=== PATIENT | male | born 1935 | race Caucasian/White ===

== ENCOUNTER 2021-04-08 10:40 | Outpatient (CLI) | payer MEDICARE, OTHER, SELFPAY | END 2021-04-08 10:41 | disposition home or self-care (01) | PROVIDERS: PCP Internal Medicine; Visit Provider Internal Medicine | DX: R79.89 Other specified abnormal findings of blood chemistry (principal); E07.9 Disorder of thyroid, unspecified | CPT/HCPCS: 36415; 84439; 84443 ==

== ENCOUNTER 2022-12-21 16:42 | Outpatient (CLI) | payer MEDICARE, OTHER, SELFPAY ==
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
== END 2022-12-21 16:43 | disposition home or self-care (01) ==
PROVIDERS: PCP Internal Medicine; Visit Provider Internal Medicine
DX: M79.601 Pain in right arm (principal)
CPT/HCPCS: 73090

== ENCOUNTER 2022-12-23 00:44 | Day surgery (SDC) | payer MEDICARE, OTHER, SELFPAY ==
[2022-12-08 13:59] VITALS: BMI 25.1
--- NOTE | 2022-12-22 15:59 | PM.HPGS ---
History of Present Illness History of Present Illness Consent: Risks, benefits, and alternatives have been discussed and questions answered. Patient agrees to proceed with procedure. Chief complaint: anemia Narrative: Jose L Santos is a 87 year old male who has become increasingly anemic over the last couple of years.? He has not seen blood in his stools.? He recalls some time ago he had blood in his stools, about 10 years ago and was found to have internal and external hemorrhoids.? He denies abdominal pain nausea vomiting or anorexia.? He denies dysphagia or heartburn.? He has lost about 5 lb in the past year.? He has had no significant change in bowel habits. His hemoglobin was 12.8 in September of 2021, and now has dropped to 11.4.? MCV remains normal at 83.? His last colonoscopy in 2015 revealed internal and external hemorrhoids but also an area in the mid to distal transverse colon that was inflamed and was biopsied. Review of Systems Review of Systems: All systems reviewed & are unremarkable except as noted in HPI and below PMFSH Past Medical History Medical History GERD (gastroesophageal reflux disease) Hypertension Social History Social History Smoking status: Former smoker Alcohol intake: current Alcohol use details: occasionally Substance use: never Substance use type: does not use Living arrangements: with family Spiritual care concerns: No Meds Home Medications and Allergies Home Medications Medication Instructions Recorded Confirmed Type allopurinol 300 mg tablet 300 mg PO DAILY 12/01/22 12/23/22 History clonidine HCl 0.1 mg tablet 0.1 mg PO DAILY 12/01/22 12/23/22 History metoprolol succinate 50 mg 50 mg PO DAILY 12/01/22 12/23/22 History tablet,extended release 24 hr omeprazole 40 mg capsule,delayed 40 mg PO DAILY 12/01/22 12/23/22 History release simvastatin 40 mg tablet 40 mg PO DAILY 12/01/22 12/23/22 History triamterene 37.5 1 cap PO DAILY 12/08/22 12/23/22 History mg-hydrochlorothiazide 25 mg capsule Allergies Allergy/AdvReac Type Severity Reaction Status Date / Time No Known Allergies Allergy Verified 12/23/22 07:39 Exam Const: General: alert Orientation/consciousness: patient oriented x3 Resp: Auscultation: clear to auscultation bilaterally Cardio: Rhythm: regular rhythm GI: GI Palp: Yes Soft to palpation and No Tenderness to palpation present (GI) Neuro: General: patient oriented x3 Assessment and Plan Assessment and plan (1) Anemia: Code(s): D64.9 - Anemia, unspecified Status: Acute Assessment and Plan: EGD with possible biopsy or dilatation or cautery.Colonoscopy with possible biopsy or polypectomy or cautery or injection of substances.
[2022-12-23 07:41] VITALS: BP 178/81; PULSE 93; RESP 16; TEMP 36.1; O2SAT 98; BMI 23.4
[2022-12-23] MEDS: LACTATED RINGERS 1,000 ML 150 ML IV CONT (07:49)
--- NOTE | 2022-12-23 08:17 | P.PNAN_ITS ---
Anes - Initial Pre Proc Eval Procedure: Operation Date: 12/23/22 08:30 Proposed Procedures p Esophagogastroduodenoscopy & Colonoscopy - Austin Lantigua MD Date/Time: 12/23/22 08:17 Surgeon: Austin Lantigua MD Pre Op Diagnosis: anemia Patient Data Age: 87 Gender: M Height: 1.63 m Weight: 62 kg Last Vital Signs Temp 96.9 F L 12/23/22 07:41 Pulse 93 12/23/22 07:41 Resp 16 12/23/22 07:41 BP 178/81 H 12/23/22 07:41 Pulse Ox 98 12/23/22 07:41 O2 Del Method Room Air 12/23/22 07:41 Allergies Allergy/AdvReac Type Severity Reaction Status Date / Time No Known Allergies Allergy Verified 12/23/22 07:39 Home Medications Medication Instructions Recorded Confirmed Type allopurinol 300 mg tablet 300 mg PO DAILY 12/01/22 12/23/22 History clonidine HCl 0.1 mg tablet 0.1 mg PO DAILY 12/01/22 12/23/22 History metoprolol succinate 50 mg 50 mg PO DAILY 12/01/22 12/23/22 History tablet,extended release 24 hr omeprazole 40 mg capsule,delayed 40 mg PO DAILY 12/01/22 12/23/22 History release simvastatin 40 mg tablet 40 mg PO DAILY 12/01/22 12/23/22 History triamterene 37.5 1 cap PO DAILY 12/08/22 12/23/22 History mg-hydrochlorothiazide 25 mg capsule Patient hx anesthesia problems: none Family hx anesthesia problems: none Results Review: All pre-operative results and documents have been reviewed as part of the pre- operative evaluation. [facility] Past Medical History Medical History GERD (gastroesophageal reflux disease) Hypertension Social History Social History Smoking status: Former smoker Alcohol intake: current Alcohol use details: occasionally Substance use: never Substance use type: does not use Living arrangements: with family Spiritual care concerns: No Anes - Eval Final PreProcedure Day of Procedure 12/23/22 08:17 Patient weight: normal Heart: regular rate and rhythm Lungs: clear to auscultation Airway: Mallampati scale class II Neurological: alert and oriented Last oral intake: >/= 8 hours ASA classification: III Emergent: no Anesthetic plan: proceed Anesthesia type and monitoring: general GIVS and standard monitoring Results Review: All pre-operative results and documents have been reviewed as part of the pre- operative evaluation. Informed Consent: The patient's anesthetic plan and its attendant risks and benefits were discussed with the patient/family/POA. Questions were solicited and answers provided to the satisfaction of the patient/family/POA.
--- NOTE | 2022-12-23 08:34 | SUR.OPER ---
EGD start 832 end 839, Colonoscopy start 847 end 904
[2022-12-23 09:05] VITALS: BP 130/62; PULSE 60; RESP 18; O2SAT 99
[2022-12-23 09:15] VITALS: BP 129/65; PULSE 57; RESP 20; O2SAT 99
--- NOTE | 2022-12-23 09:18 | SUR.OPER ---
COSMETIC MANAGER provided oral suctioning during EGD.
[2022-12-23 09:25] VITALS: BP 155/69; PULSE 52; RESP 24; O2SAT 100
== END 2022-12-23 09:35 | disposition home or self-care (01) ==
PROVIDERS: PCP Internal Medicine; Visit Provider Internal Medicine Gastroenterology
PROC: 0DJ08ZZ Inspection of Upper Intestinal Tract, Via Natural or Artificial Opening Endoscopic (ICD-10-PCS; CPT 43235; principal; 2022-12-23 08:30)
DX: D64.9 Anemia, unspecified (principal); K64.8 Other hemorrhoids; D12.8 Benign neoplasm of rectum; D12.3 Benign neoplasm of transverse colon; K57.30 Diverticulosis of large intestine without perforation or abscess without bleeding; K31.7 Polyp of stomach and duodenum; K21.9 Gastro-esophageal reflux disease without esophagitis; I10 Essential (primary) hypertension; Z87.891 Personal history of nicotine dependence
CPT/HCPCS: 45385; 45380; 43239; 43251; 87081; 88305; J2704; J7120

== ENCOUNTER 2024-07-11 19:50 | Inpatient (IN) | payer MEDICARE, OTHER, SELFPAY ==
--- NOTE | ~2024-07-11 | CT_ITS ---
EXAMINATION: CT cervical spine wo con DATE: 07/11/2024 21:33 INDICATION: Fall with head injury TECHNIQUE: Computed tomography (CT) of the cervical spine was performed without intravenous contrast. Automated exposure control and iterative reconstruction technique were employed. The dose-length pro duct was 229.75 mGy-cm. COMPARISON: None FINDINGS: Severe osteoarthritis at the atlantoaxial articulation. 2-3 mm anterolisthesis C7 on T1. Mild cervica l levocurvature. 10 degrees cervical levocurvature. Vertebral body heights are normal. No acute fract ure. There is fusion across the C3-C4 facet and uncovertebral joints. Severe disc height loss at C5-C 6 through C7-T1. Mild disc height loss at C2-C3 and C4-C5 and T1-T2 and T2-T3. Small posterior endpla te osteophyte resulting in mild central canal stenosis at C5-C6 and C6-C7. Severe facet osteoarthriti s bilaterally throughout the cervical spine and multilevel moderate to severe cervical uncovertebral osteoarthritis. There is moderate neural foraminal stenosis on the right at C4-C5 and bilaterally at C2-C3, C5-C6 and C6-C7. Mild neural foraminal stenosis at the remaining cervical levels. Atherosclero tic calcific a cyst at the bilateral carotid bulbs. Cervical soft tissues are otherwise unremarkable. Mild right apical pleural-parenchymal scarring. IMPRESSION: 1. Severe cervical spondylosis with no acute osseous abnormality. Reviewed, dictated and finalized at location A.
--- NOTE | ~2024-07-11 | CT_ITS ---
EXAMINATION: CT brain wo con DATE: 07/11/2024 21:33 INDICATION: Fall with head injury TECHNIQUE: Computed tomography (CT) of the head was performed without intravenous contrast. Sagittal and coronal reconstructions were performed. The mA was adjusted according to patient size. Iterative reconstruction technique was employed. The dose-length product was 681.00 mGy-cm. COMPARISON: None FINDINGS: No fracture. No acute intracranial hemorrhage, acute infarction or abnormal extra axial fluid collect ion. There is mild scattered white matter hypoattenuation consistent with chronic small vessel ischem ic disease. Symmetric prominence of the sulci and ventricles consistent with moderate age-appropriate diffuse cerebral volume loss. No mass/mass effect. There is complete opacification of the left sphe noid sinus with relatively high central attenuation suggesting possibility of chronic fungal sinusiti s. There appears to be focal decreased since along the posterior sinus wall just anterior to the basi lar artery and along the inferior wall on the rest the posterior oropharynx. Changes of bilateral int raocular lens replacement. The orbits and mastoid air cells are normal. IMPRESSION: 1. No fracture or acute intracranial process. 2. Complete ill-defined high density opacification of the left sphenoid sinus consistent with chronic fungal sinusitis with small regions of dehiscence along the posterior and inferior hawthorne of the sinu s, the former located immediately anterior to the basilar artery. Reviewed, dictated and finalized at location A. IMPRESSION: 1. No fracture or acute intracranial process. 2. Complete ill-defined high density opacification of the left sphenoid sinus c onsistent with chronic fungal sinusitis with small regions of dehiscence along the posterior and inferior hawthorne of the sinus, the former located immediately a nterior to the basilar artery.
--- NOTE | ~2024-07-11 | XR_ITS ---
EXAMINATION: XR chest 1V portable DATE: 07/11/2024 21:12 INDICATION: Bradycardia TECHNIQUE: frontal view of the chest was obtained. COMPARISON: Chest radiograph dated 06/22/06 FINDINGS: There a few bilateral calcified pulmonary nodules consistent with old granulomatous disease. No other airspace opacities, pulmonary edema, pleural effusion or pneumothorax. The cardiomediastinal silhoue tte is normal. 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 IMPRESSION: 1. No acute cardiopulmonary disease. Reviewed, dictated and finalized at location A.
--- NOTE | ~2024-07-11 | US_ITS ---
EXAMINATION: US renal BI DATE: 07/12/2024 15:12 INDICATION: Acute renal insufficiency TECHNIQUE: Multiple ultrasound grayscale images of the kidneys were obtained. COMPARISON: None. FINDINGS: The right kidney measures 10.1 x 4.9 x 4.9 cm. The left kidney measures 12.0 x 6.0 x 4.0 cm. The kidn eys demonstrate normal echogenicity. There are bilateral anechoic renal cysts the largest on the righ t measuring 1.8 cm and 1.7 cm in maximal diameters and on the left measuring 1.4 cm in maximal diamet er. There is no hydronephrosis in either kidney. No stones identified. The bladder is normal. IMPRESSION: 1. Bilateral renal cysts. Otherwise normal kidneys without hydronephrosis. Reviewed, dictated and finalized at location A.
--- NOTE | ~2024-07-11 | XR_ITS ---
EXAMINATION: XR hand LT 2V DATE: 07/11/2024 22:11 INDICATION: Fall with left hand pain TECHNIQUE: Posteroanterior, oblique and lateral views of the left hand were obtained. COMPARISON: None. FINDINGS: Diffuse osteopenia. Bone alignment is normal. No fracture. There is chondrocalcinosis at the wrist an d second and third metacarpophalangeal joints. Polyarticular osteoarthritis, severe at the first carp ometacarpal and second and third metacarpophalangeal joints. Moderate osteoarthritis at the first and fifth metacarpophalangeal, first interphalangeal and second distal interphalangeal joint and mild at the remaining joints at the left hand and wrist. No erosions to suggest inflammatory arthritis. IMPRESSION: 1. No acute osseous abnormality. 2. 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 calcium pyrophosphate deposition (CPPD) disease. Reviewed, dictated and finalized at location A. IMPRESSION: 1. No acute osseous abnormality. 2. Moderate to severe polyarticular osteoarthritis with atypical predominance a t the second and third metacarpophalangeal joints which along with chondral rick cinosis suggests possibility of secondary osteoarthritis related. calcium pyrop hosphate deposition (CPPD) disease.
--- NOTE | ~2024-07-11 | MR_ITS ---
EXAMINATION: MR sinus wo/w con DATE: 07/12/2024 12:36 INDICATION: Chronic fungal sinusitis TECHNIQUE: Magnetic resonance imaging (MRI) of the paranasal sinuses was performed without and with 1 2 mL Multihance intravenous contrast. Sequences included larger yazyi-ev-tzym including the brain wit h sagittal T2-weighted FLAIR and 3-D axial T1 weighted MULLEN; smaller field of view of the paranasal sinuses with axial and coronal T1-weighted FSE, T2-weighted FS FSE and T2-weighted FSE STIR, axial T 1-weighted FS FSE and postcontrast small [id number] axial and coronal T1-weighted FS FSE and large r [id number] including the brain with sagittal and axial T1-weighted FSE. COMPARISON: CT dated 07/11/2024 FINDINGS: There is mild enhancing mucoperiosteal thickening in the left maxillary, right sphenoid and bilateral frontal and ethmoid sinuses. There is moderate enhancing mucosal thickening at the periphery of none nhancing T1 hyperintense material likely proteinaceous mucus filling the left sphenoid sinus. End see n is a small defect in the bone at the posterior wall of the left sphenoid sinus. Local dural based e nhancement along the posterior margin of the clivus which measures up to 1 mm in thickness. No epidur al or subdural fluid collections to suggest abscess. Similarly there is mild mucosal enhancement fran g the posterior superior wall of the oropharynx underlying the region of the cortical defect seen on the prior CT which is also subtly discernible on the coronal images. There is mild scattered periventricular and subcortical predominant white matter T2 hyperintensity wh ich is within normal limits for age and likely sequela of chronic small vessel ischemic disease. Symm etric prominence of the sulci and ventricles consistent with moderate age-appropriate diffuse cerebra l volume loss. No abnormally enhancing brain lesions. Flow voids are seen in the cerebral arteries on the T2-weighted sequences consistent with their expected patency. The right vertebral artery is kamari nant. Changes of bilateral intraocular lens replacement. IMPRESSION: 1. Left sphenoid sinusitis with mild enhancing dural thickening along the posterior margin of the cli vus overlying a small erosion in the posterior wall of the left sphenoid sinus. Similarly there is mi ld enhancing mucosal thickening along the posterior superior wall of the oropharynx overlying an radha tional small erosion along the inferior wall of the sinus. No evident intracranial abscess or other a bnormally enhancing brain lesions. Reviewed, dictated and finalized at location A. IMPRESSION: 1. Left sphenoid sinusitis with mild enhancing dural thickening along the poste rior margin of the clivus overlying a small erosion in the posterior wall of th e left sphenoid sinus. Similarly there is mild enhancing mucosal thickening calvin ng the posterior superior wall of the oropharynx overlying an additional small erosion along the inferior wall of the sinus. No evident intracranial abscess o r other abnormally enhancing brain lesions.
--- NOTE | ~2024-07-11 | XR_ITS ---
EXAMINATION: XR knee RT 3V DATE: 07/11/2024 22:11 INDICATION: Right knee pain post fall TECHNIQUE: Anteroposterior, 2 oblique and crosstable lateral views of the right knee were obtained COMPARISON: None. FINDINGS: Right total knee arthroplasty with patellar resurfacing which appears well seated in near-anatomic al ignment. No fracture. No periprosthetic lucency to suggest loosening or infection. No right knee join t effusion. There is mild soft tissue swelling anterior to the inferior patella. IMPRESSION: 1. Right total knee arthroplasty with mild prepatellar soft tissue swelling but no right knee joint e ffusion or acute osseous abnormality. Reviewed, dictated and finalized at location A. IMPRESSION: 1. Right total knee arthroplasty with mild prepatellar soft tissue swelling but no right knee joint effusion or acute osseous abnormality.
--- NOTE | ~2024-07-11 | XR_ITS ---
EXAMINATION: XR elbow RT 2V DATE: 07/11/2024 22:11 INDICATION: Right elbow pain post fall TECHNIQUE: Anteroposterior and lateral views of the right elbow were obtained. COMPARISON: None. FINDINGS: Alignment is normal. No fracture or joint effusion. Mild osteoarthritis at the right elbow. Periphera l IV at the antecubital fossa. Soft tissues otherwise unremarkable. IMPRESSION: 1. No right elbow joint effusion or acute osseous abnormality. Reviewed, dictated and finalized at location A.
[2024-07-11 20:25] VITALS: BP 187/47; PULSE 37; RESP 20; TEMP 36.6; O2SAT 100
[2024-07-11 21:27] LABS: Basophils Percent Auto 0.5 % (0.2-1.2); Eosinophils Absolute Auto 0.2 K/mm3 (0-0.3); Eosinophils Percent Auto 2.7 % (0-4.4); Hematocrit 34.9 % (42.0-52.0); Hemoglobin 10.9 g/dL (14.0-18.0); Immature Granulocyte Absolute 0.02 K/mm3 (0.00-0.031); Immature Granulocyte Percent A 0.4 % (0-0.5); Lymphocytes Absolute Auto 1.05 K/mm3 (0.9-3.2); Lymphocytes Percent Auto 18.9 % (18.3-44.2); Mean Corpuscular HGB Conc 31.2 g/dl (32-36); Mean Corpuscular Hemoglobin 25.3 pg (26-34); Mean Corpuscular Volume 81.2 fl (80-100); Mean Platelet Volume 10.1 fl (7.4-10.4); Monocytes Absolute Auto 0.5 K/mm3 (0.1-0.6); Monocytes Percent Auto 9.7 % (2.6-8.5); Neutrophils Absolute Auto 3.8 K/mm3 (1.3-6.7); Neutrophils Percent Auto 67.8 % (45.5-73.1); Platelet Count Result 169 k/mm3 (150-375); Red Cell Distribution Width 14.4 % (11.5-14.5); White Blood Count 5.6 K/mm3 (4.5-10.0)
[2024-07-11 21:37] LABS: Prothrombin Time 13.7 Seconds (11.1-14.7)
[2024-07-11 21:38] LABS: Partial Thromboplastin Time 27.8 Seconds (22.3-36.8)
[2024-07-11 21:48] LABS: Alanine Aminotransferase 10 U/L (6-50); Albumin Level 3.9 g/dL (3.5-5.1); Alkaline Phosphatase 65 U/L (38-126); Anion Gap 8 mmol/L (4-12); Aspartate Amino Transferase 20 U/L (17-59); Bilirubin,Total 0.5 mg/dL (0.2-1.3); Blood Urea Nitrogen 30 mg/dL (9-20); Calcium 8.9 mg/dL (8.4-10.2); Carbon Dioxide 28 mmol/L (22-30); Chloride 102 mmol/L (98-107); Estimated CRCL calculation 24 ml/min; Estimated Glomerular Filt Rate 38; Glucose 109 mg/dL (65-110); Lipase 112 U/L (23-300); Potassium 3.9 mmol/L (3.4-5.0); Sodium 138 mmol/L (137-145)
[2024-07-11 21:52] LABS: Troponin I < 0.012 ng/mL (0.000-0.034)
--- NOTE | 2024-07-11 21:55 | ED.FALL ---
HPI - Fall General Chief Complaint: Fall <Bryan Pritchard MD - Last Filed: 07/11/24 23:22> Stated Complaint: fall, head injury <Bryan Pritchard MD - Last Filed: 07/11/24 23:22> Time Seen by Provider: 07/11/24 20:50 <Bryan Pritchard MD - Last Filed: 07/11/24 23:22> History of Present Illness HPI Narrative: 88-year-old male with a past medical history significant for chronic anemia and hypertension. Presents today with a ground level mechanical fall. Patient states he was washing his daughter's play basketball and he went in accidentally tripped over his feet while walking forward. Sustained a ground level fall with head trauma without loss of consciousness. He braced himself by landing onto his left hand and right elbow. Was able to get up unassisted and did not have any syncope. Does not take any blood thinner medications. Is on multiple antihypertensive medications according to himself. Has a history of bradycardia but not previously been evaluated for any kind of pacemaker placement. Has had recent titration is to his blood pressure medications according to his daughter who was present at bedside for collateral information. Patient denied any prodromal symptoms such as headache, vision changes, chest pain, shortness a breath, lightheadedness or dizziness prior to his fall. He states was purely mechanical in nature. Presently he states he is having some pain in his right knee and right elbow does have a minor abrasion. Unclear if his tetanus is up-to-date. No other acute concerns presently. <Bryan Pritchard MD - Last Filed: 07/11/24 23:22> Related Data Home Medications: Home Medications Medication Instructions Recorded Confirmed allopurinol 300 mg tablet 300 mg PO DAILY 12/01/22 07/12/24 clonidine HCl 0.1 mg tablet 0.1 mg PO BID 12/01/22 07/12/24 metoprolol succinate 50 mg 50 mg PO DAILY 12/01/22 07/12/24 tablet,extended release 24 hr omeprazole 40 mg capsule,delayed 40 mg PO DAILY 12/01/22 07/12/24 release simvastatin 40 mg tablet 40 mg PO DAILY 12/01/22 07/12/24 triamterene 37.5 1 cap PO DAILY 12/08/22 07/12/24 mg-hydrochlorothiazide 25 mg capsule levothyroxine 25 mcg tablet 25 mcg PO DAILY 07/12/24 07/12/24 <Bryan Pritchard MD - Last Filed: 07/11/24 23:22> Allergies/Adverse Reactions: Allergies Allergy/AdvReac Type Severity Reaction Status Date / Time No Known Allergies Allergy Verified 07/11/24 20:40 <Bryan Pritchard MD - Last Filed: 07/11/24 23:22> Review of Systems Review of Systems: As reviewed above in HPI <Bryan Pritchard MD - Last Filed: 07/11/24 23:22> PMFSH Past Medical History Medical History: Medical History GERD (gastroesophageal reflux disease) Hypertension <Bryan Pritchard MD - Last Filed: 07/11/24 23:22> Social History Social History: Social History Smoking status: Former smoker Alcohol intake: current Alcohol use details: occasionally Substance use: never Substance use type: does not use Living arrangements: with family Spiritual care concerns: No <Bryan Pritchard MD - Last Filed: 07/11/24 23:22> Exam Narrative: GENERAL: [Well-appearing, well-nourished, and in no acute distress.] HEAD: Superior orbital ridge hematoma on the right side, very minor without any overlying abrasion EYES: [PERRLA and EOMI.] ENT: Nares clear, no rhinorrhea or epistaxis. Mucous membranes moist. NECK: Supple. CHEST: [Clear to auscultation. No respiratory distress.] HEART: [Regular rate and rhythm]. No murmur heard. [Normal peripheral pulses.] ABDOMEN: [Soft, nondistended], [nontender], [No rigidity or guarding] EXTREMITIES: Abrasion over the lateral aspect of the right elbow but full range of motion with flexion extension
[2024-07-11 21:59] VITALS: BP 188/63; PULSE 38; RESP 16; O2SAT 99
[2024-07-11] MEDS: LACTATED RINGERS 1,000 ML 999 ML IV CONT (22:11)
[2024-07-11] MEDS: TETANUS,DIPHTHERIA,AC PERTUSSIS ADULT (0.5 ML) BOOSTRIX IM (22:11)
[2024-07-11] MEDS: ACETAMINOPHEN 500 MG TABLET 1000 MG PO (22:11)
--- NOTE | 2024-07-11 23:10 | ECG_ITS ---
Test Date: 2024-07-11 20:45:43 Measurements Intervals [place] Rate: 40 P: 54 VT: 187 QRS: -30 QRSD: 103 T: 3 QT: 499 QTc: 410 Interpretive Statements SINUS BRADYCARDIA INCOMPLETE RIGHT BUNDLE BRANCH BLOCK BORDERLINE R WAVE PROGRESSION, ANTERIOR LEADS VOLTAGE CRITERIA FOR LVH BORDERLINE T WAVE ABNORMALITY- ANT/INF LEADS BASELINE ARTIFACT- I, II, III, AVR, AVL, V3-V6 ABNORMAL ECG No previous ECG available for comparison Electronically Signed On 07-12-2024 06:28:19 CDT by Mati Espana D.O.
[2024-07-11 23:36] VITALS: BP 181/61; PULSE 42; RESP 15; O2SAT 99
[2024-07-12] VITALS (20 sets, daily range): BP systolic 142–199; BP diastolic 51–73; PULSE 40–83; RESP 15–20; TEMP 36.2–36.5; O2SAT 96–100
--- NOTE | 2024-07-12 | ECHO_ITS ---
Patient Info Name: Jose L Santos Age: 88 years : 1935 Gender: Male Ht: 64 in Wt: 138 lbs BSA: 1.69 m2 HR: 48 bpm BP: 168 / 68 mmHg Heart Rhythm: Bradycardia Technical Quality: Fair Exam Date: 07/12/2024 3:23 PM Exam Location: Echo Lab Patient Status: Outpatient Admit Date: 07/12/2024 Staff Ordering Physician: Fabio Gustafson MD [employer] Laboratory Manager: Joan Roberts RDCS Attending Provider: Jaime Echeverria MD Exam Type: CA echo doppler color flow Study Info Indications R00.1 - Bradycardia, unspecified Complete two-dimensional, color flow and Doppler transthoracic echocardiogram is performed. Summary 1. Left ventricular systolic function is normal, estimated at 60-65%. 2. There is mild asymmetric septal increased left ventricular wall thickness. 3. The left ventricular diastolic function is grade I diastolic dysfunction. 4. Right ventricular systolic function is normal. 5. Left atrial chamber dimension is moderately enlarged. 6. Right atrial chamber dimension is mildly enlarged. 7. There is mild aortic valve regurgitation. 8. There is mild tricuspid valve regurgitation. Left Ventricle Left ventricular systolic function is normal, estimated at 60-65%. There is mild asymmetric septal increased left ventricular wall thickness. The left ventricular diastolic function is grade I diastolic dysfunction. Right Ventricle Right ventricular chamber dimension is normal. Right ventricular systolic function is normal. Left Atria Left atrial chamber dimension is moderately enlarged. Right Atria Right atrial chamber dimension is mildly enlarged. Atrial Septum Intact interatrial septum visualized by color flow imaging. Aortic Valve The aortic valve is trileaflet. There is no aortic valve stenosis. There is mild aortic valve regurgitation. There is mild aortic valve calcification. Pulmonic Valve The pulmonic valve is not well visualized. There is no pulmonic regurgitation. Mitral Valve There is trace mitral valve regurgitation. Tricuspid Valve There is mild tricuspid valve regurgitation. Pericardium/Pleural The pericardium appears epicardial fat pad. There is no pericardial effusion. Inferior Vena Cava Inferior vena cava is not well visualized. Aorta The aortic root size at the sinus of Valsalva is normal. Left Ventricular Outflow Tract Name Value Normal LVOT 2D LVOT Diameter 2.0 cm LVOT Doppler LVOT Peak Gradient 3 mmHg LVOT Mean Gradient 1 mmHg LVOT VTI 25 cm LVOT VTI/AV VTI Ratio 0.7 LVOT Stroke Volume 78 ml LVOT CO 3.2 l/min LVOT CI 1.9 l/min/m2 Pulmonic Valve Name Value Normal RVOT Doppler RVOT Peak Gradient 2 mmHg PV Doppler
--- NOTE | 2024-07-12 00:06 | PM.IMHP ---
H&P: HPI History of Present Illness Date/Time: 07/12/24 00:06 Chief Complaint: FALL Narrative: THIS IS AN 88-YEAR-OLD MALE WITH PAST MEDICAL HISTORY SIGNIFICANT FOR HYPERTENSION, GERD. PATIENT WAS BROUGHT TO THE EMERGENCY ROOM FOR EVALUATION AFTER SUFFERING A FALL NO LOSS OF CONSCIOUSNESS. HOWEVER AFTER EVALUATION WAS DETERMINED THAT PATIENT HAD NO ACUTE FRACTURES HAD A CHANGE ON HIS HEART RATE THAT DROPPED TO THE 30'S PATIENT HAD BEEN TAKING EXCESS AMOUNT OF HIS BETA-KIYA AT HOME.DECISION HAS BEEN MADE TO PLACE THE PATIENT IN OBSERVATION FOR FURTHER EVALUATION MANAGEMENT AND TREATMENT. EXAMINATION: XR chest 1V portable DATE: 07/11/2024 21:12 INDICATION: Bradycardia TECHNIQUE: frontal view of the chest was obtained. COMPARISON: Chest radiograph dated 06/22/06 FINDINGS: There a few bilateral calcified pulmonary nodules consistent with old granulomatous disease. No other airspace opacities, pulmonary edema, pleural effusion or pneumothorax. The cardiomediastinal silhouette is normal. 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 IMPRESSION: 1. No acute cardiopulmonary disease. EXAMINATION: CT brain wo con DATE: 07/11/2024 21:33 INDICATION: Fall with head injury TECHNIQUE: Computed tomography (CT) of the head was performed without intravenous contrast. Sagittal and coronal reconstructions were performed. The mA was adjusted according to patient size. Iterative reconstruction technique was employed. The dose-length product was 681.00 mGy-cm. COMPARISON: None FINDINGS: No fracture. No acute intracranial hemorrhage, acute infarction or abnormal extra axial fluid collection. There is mild scattered white matter hypoattenuation consistent with chronic small vessel ischemic disease. Symmetric prominence of the sulci and ventricles consistent with moderate age-appropriate diffuse cerebral volume loss. No mass/mass effect. There is complete opacification of the left sphenoid sinus with relatively high central attenuation suggesting possibility of chronic fungal sinusitis. There appears to be focal decreased since along the posterior sinus wall just anterior to the basilar artery and along the inferior wall on the rest the posterior oropharynx. Changes of bilateral intraocular lens replacement. The orbits and mastoid air cells are normal. IMPRESSION: 1. No fracture or acute intracranial process. 2. Complete ill-defined high density opacification of the left sphenoid sinus consistent with chronic fungal sinusitis with small regions of dehiscence along the posterior and inferior hawthorne of the sinus, the former located immediately anterior to the basilar artery. Review of Systems Review of Systems: [facility] Past Medical History Medical History (Updated 07/12/24 @ 03:06 by Jaime Echeverria MD) GERD (gastroesophageal reflux disease) Hypertension Family History Family History (Updated 07/12/24 @ 01:04 by Radha Ordonez RN) Other Unknown family medical history Social History Social History Smoking status: Never smoker Alcohol intake: current Alcohol use details: occasionally Substance use: never Substance use type: does not use Do You Feel Safe in your Home?: Yes Lack of Transportation: No Lack of Food: Never True Current Housing: I Have Housing Concerned About Future Housing: No Difficulty Paying Gas/Electric Bills: No Difficulty Paying for Meds: No Currently Unemployed: No Education: Bachelor's Degree Difficulty w/ Childcare or Family Care: No Living arrangements: with family Spiritual care concerns: No Meds Home Medications and Allergies Home Medications Medication Instructions Recorded Confirmed Type allopurinol 300 mg tablet 300 mg PO DAILY 12/01/22 07/12/24 History clonidine HCl 0.1 mg tablet 0.1 mg PO BID 12/01/22 07/12/24 History metoprolol succinate 50 mg 50 mg
--- NOTE | 2024-07-12 01:10 | ADMGEN ---
This patient, Jose L Santos, was admitted to IMU Room 204-01. Patient/family oriented to hospital policies and general routines including ID bracelet, bed and alarms, visiting hours, pain management, procedures, bathroom and other care routines, personal items, smoking policy, room service/diet, and visiting hours. Information on how to activate the Rapid Response Team has been discussed. Patient/Family are encouraged to report perceived risks to care and to ask questions if they do not understand what they are told or what they should do.
[2024-07-12] MEDS: hydrALAZINE HCL 20 MG/ML VIAL 10 MG IV PUSH ×2 (01:56→04:49)
[2024-07-12] MEDS: LEVOTHYROXINE SODIUM 25 MCG TABLET PO (06:35)
--- NOTE | 2024-07-12 07:57 | ECG_ITS ---
Test Date: 2024-07-12 09:36:13 Measurements Intervals [place] Rate: 50 P: 70 [place]: 199 QRS: -38 QRSD: 93 T: 7 QT: 453 QTc: 414 Interpretive Statements SINUS BRADYCARDIA LEFT AXIS DEVIATION INCOMPLETE RIGHT BUNDLE BRANCH BLOCK VOLTAGE CRITERIA FOR LVH POSSIBLE ANTERIOR MYOCARDIAL INFARCTION BORDERLINE ST ABNORMALITY- LATERAL LEADS BASELINE ARTIFACT- I, II, III, AVR, AVL, AVF, V1 ABNORMAL ECG Compared to ECG 07/11/2024 20:45:43 HEART RATE HAS INCREASED Electronically Signed On 07-12-2024 10:12:12 CDT by Mati Espana D.O.
[2024-07-12] MEDS: allopurinoL 300 MG TABLET PO (08:26)
[2024-07-12] MEDS: PANTOPRAZOLE 40 MG TABLET PO ×2 (08:27→20:13)
[2024-07-12] MEDS: amLODIPine BESYLATE 5 MG TABLET PO (08:27)
[2024-07-12] MEDS: SIMVASTATIN 20 MG TABLET 40 MG PO (08:27)
[2024-07-12 09:54] LABS: Complement C3 97 mg/dL (88-165)
[2024-07-12 09:59] LABS: Albumin Level 3.7 g/dL (3.5-5.1); Anion Gap 7 mmol/L (4-12); Blood Urea Nitrogen 27 mg/dL (9-20); Calcium 9.1 mg/dL (8.4-10.2); Carbon Dioxide 28 mmol/L (22-30); Chloride 105 mmol/L (98-107); Creatine Kinase 51 U/L (55-170); Estimated CRCL calculation 24 ml/min; Estimated Glomerular Filt Rate 38; Glucose 117 mg/dL (65-110); Phosphorus 3.5 mg/dL (2.5-4.5); Potassium 3.7 mmol/L (3.4-5.0); Sodium 140 mmol/L (137-145)
[2024-07-12 10:56] LABS: Iron 35 ug/dL (49-181)
[2024-07-12 10:59] LABS: Folic Acid 8.1 ng/mL (2.76->20)
[2024-07-12 11:05] LABS: Percent Iron Saturation 11 % (20-50)
[2024-07-12 12:31] LABS: Free T4 Free Thyroxine Reflex 1.07 ng/dL (0.78-2.19)
--- NOTE | 2024-07-12 13:15 | PM.IMPN ---
Progress Note: A&P Assessment and Plan (1) Bradycardia, sinus: Code(s): R00.1 - Bradycardia, unspecified Status: Acute Assessment and Plan: Patient presents with a fall and found to be bradycardic. He is on long-acting metoprolol which was stopped. He is also on clonidine which will hold as well. TSH 4.78 He does have confusion so he may be taking his medications inappropriately. He also may have an underlying conduction defect as well. Monitor off medications. Check ApneaLink. Check echocardiogram. Cardiology consulted his heart rate does not improve as expected (2) Fall from ground level: Code(s): W18.30XA - Fall on same level, unspecified, initial encounter Status: Acute Assessment and Plan: Patient states he tripped over his own feet falling to the ground. Chest x-ray is clear CT the brain no acute process but did show possible chronic fungal sinusitis Cervical spine CT shows severe cervical spondylosis but no acute osseous abnormalities. 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 Right elbow x-ray shows no acute findings. Start PT OT. Check B12 and folate levels. (3) ADEEL (acute kidney injury): Code(s): N17.9 - Acute kidney failure, unspecified Status: Acute Assessment and Plan: Creatinine 1.7 on admission. Old labs reviewed through family shows he had normal creatinine function a month ago. Rheumatoid factor month ago was negative. SPEP showed no M spike. Which check renal ultrasound. Hold Maxzide. Normal saline x1 L. Follow (4) Hypertension: Code(s): I10 - Essential (primary) hypertension Status: Acute Assessment and Plan: Patient's blood pressure was reviewed on 07/12 Blood pressure remains ekevated but was 142/60 when checked manually. Family does state that patient does need manual blood pressure checks for accuracy. Holding clonidine metoprolol for the bradycardia Will hold the Maxzide given his acute kidney injury. Will add Norvasc and adjust medications accordingly. (5) Sinusitis: Code(s): J32.9 - Chronic sinusitis, unspecified Status: Acute Assessment and Plan: CT the brain shows possible chronic fungal sinusitis at the left sphenoid sinus with small regions of dehiscence. This is adjacent to the basilar artery. Check MRI of the sinus to determine severity. ENT consult. May need to be transferred for biopsy if there are more concerning signs. (6) Cognitive impairment: Code(s): R41.89 - Other symptoms and signs involving cognitive functions and awareness Status: Acute Assessment and Plan: Patient with cognitive impairment that the family has noted recently. 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 CT the brain noted here showing possible sinusitis as mentioned above. Will not repeat MRI of the brain. Check B12, folate and vitamin-D levels. Defer to primary care doctor for further evaluation treatment. (7) Anemia: Code(s): D64.9 - Anemia, unspecified Status: Acute Assessment and Plan: Patient known to be iron deficient anemia and was noted here as well. Sources probably slow blood loss from polyps that have since been removed. Home with iron replacement (8) GERD (gastroesophageal reflux disease): Code(s): K21.9 - Gastro-esophageal reflux disease without esophagitis Status: Acute Assessment and Plan: PPI Plan DVT prophylaxis -Lovenox Code status -full Subjective Date/time seen: 07/12/24 13:15 Interval history: 88yo male with cognitive impariment, HTN and GERD here for fall and found to have bradycardia. Assuming car. Chart reviewed. Patient is alert but mildly confused. Family is in
[2024-07-12] MEDS: SODIUM CHLORIDE 0.9% IV 1,000 ML 100 ML IV CONT (14:31)
[2024-07-12] MEDS: CYANOCOBALAMIN INJ 1,000 MCG/ML VIAL 1000 MCG IM (14:31)
[2024-07-12] MEDS: ENOXAPARIN 30 MG/0.3 ML SYRINGE SUB-Q (14:32)
[2024-07-12 14:49] LABS: Total Triiodothyronine (T3) 1.02 NG/ML (0.97-1.69)
[2024-07-12 18:09] LABS: Add Urine Microscopic? NO; Appearance Urine Clear (Clear); Bilirubin Urine Negative (Negative); Blood Urine Negative (Negative); Color Urine Yellow (Yellow); Glucose Urine UA Negative (Negative); Ketones Urine Negative (Negative); Leukocyte Esterase Ur Negative LEU/UL (Negative); Nitrate Urine Negative (Negative); Protein Urine Negative (Negative); Specific Grav Ur 1.015 (1.001-1.035); Urobilinogen Urine 0.2 mg/dL (<2.0)
[2024-07-13] VITALS (19 sets, daily range): BP systolic 146–203; BP diastolic 43–78; PULSE 37–103; RESP 15–20; TEMP 36–36.6; O2SAT 97–99
--- NOTE | 2024-07-13 01:28 | PC.NURSE ---
attempted to call daughter Shelia due to patient refusing to go back to room stating I'm going home
--- NOTE | 2024-07-13 01:33 | PC.NURSE ---
The patient became confused and is refusing help during morning rounds. He started to become aggressive and was attempting to Go home in his hospital gown. I informed him we could address his issues back in his room and he refused. Security was called for assistance as the patient went into another patient's room. He is currently back in his room, but will not allow anyone to help him or talk with him at this time. His family called for assistance and to update them, but was unable to be reached.
--- NOTE | 2024-07-13 05:19 | PC.NURSE ---
Patient refused to have am labs drawn verbalizing he wants to sleep. Discussed with patient the purpose of the lab draw. Patient continues to refuse lab draw.
--- NOTE | 2024-07-13 05:26 | PCRCNOTE ---
Patient refused apnea link the night of 07/12. Apnea link was placed on patient, then RT received a call from RN stating the patient had pulled off his apnea link and refused to wear it any longer. Will attempt again the night of 07/13.
[2024-07-13] MEDS: LORazepam INJ (*CRX) 2 MG/ML VIAL 1 MG IV PUSH (05:58)
--- NOTE | 2024-07-13 05:59 | PC.NURSE ---
At 0430 the patient again became very agitated. This was associated with the morning lab rounding done with the automatic wheel line operator. Again security had to be involved with Ez the responding security field supervisor. The patient refused labs, further vitals, medications, and his child monitor. He has exhibited multiple aggressive behaviors including posturing, thrashing, and verbal. Dr. Echeverria was notified and the situation was extensively discussed with her. The decision was made to give ativan 1mg IV x 1 for delirium. Administration was aided by 2 other RNs including smelter charger and security. The patient was educated on the need for the medication as well as the effects it will likely have. This patient's daughter has now arrived and is at the bedside. The patient is cooperating with the daughter, but still clearly confused and unable to answer all of her questions.
--- NOTE | 2024-07-13 07:34 | PC.NURSE ---
This RN was able to go into the room and place front desk assistant on patient. The patient opened eyes during this time and when asked, Jose L, can we get a blood pressure from you ? Responded NO, NO . Family member remains at the bedside at this time. No acute distress noted at this time.
--- NOTE | 2024-07-13 09:12 | PM.CNCAR ---
Assessment and Plan Assessment and plan (1) Bradycardia, sinus: Code(s): R00.1 - Bradycardia, unspecified Status: Acute Assessment and Plan: He has sinus bradycardia with occasional PACs. So far on telemetry I did not see any pauses, high-degree AV blocks, or significant bradycardia. This is likely a result of medication misuse, possible that patient took more than the prescribed doses of antihypertensives including metoprolol and clonidine. Possible that he has underlying conduction system disease as well. Continue to hold metoprolol and clonidine Continue telemetry monitoring TSH mildly elevated, T4 normal Will check an ApneaLink tonight Echocardiogram showed normal LV function with no significant valvular pathology. (2) Hypertension: Code(s): I10 - Essential (primary) hypertension Status: Acute Assessment and Plan: Hypertensive now with discontinuation of metoprolol and clonidine. Would like to use LAURA/ARB, but we will hold off in light of his acute kidney injury. Amlodipine less likely to cause bradycardia since it is a DHP calcium channel yvonne. Given limited options for antihypertensive agents will increase amlodipine to 10mg daily. Can use IV hydralazine p.r.n. while adjusting antihypertensive regimen. History of Present Illness History of Present Illness Consult date/time: 07/13/24 09:12 Requesting physician: Fabio Gustafson MD Consult reason: Other (bradycardia) Reason For Visit: Bradycardia, Medication overdose Narrative: Jose L Santos is an 88 year old male who presented to the hospital following a mechanical fall. We are consulted for bradycardia. Unable to obtain history from the patient as he received Ativan this morning and is very drowsy. However, the patient's daughter is at the bedside and provided family history. Patient was leaving his granddaughter's basketball game and because of shuffling gait caught one foot on the other, tripped and fell. He did not lose consciousness. Patient does not have any previous cardiac history. She does not know of any previous bradycardia. This was 1st noticed when he arrived in the emergency department in his heart rate was in the 30s. Patient's daughter does state that he is had noticeable cognitive decline recently and she is concerned that he has not been taking his medications as directed, may have accidentally taken too much metoprolol. She denies patient having any syncope, presyncope, chest pain, shortness of breath, swelling. Review of Systems Review of Systems: ROS unobtainable: Yes unobtainable due to medical condition and unobtainable due to mental status PMF Past Medical History Medical History GERD (gastroesophageal reflux disease) Hypertension Family History Family History Other Unknown family medical history Social History Social History Smoking status: Never smoker Alcohol intake: current Alcohol use details: occasionally Substance use: never Substance use type: does not use Do You Feel Safe in your Home?: Yes Lack of Transportation: No Lack of Food: Never True Current Housing: I Have Housing Concerned About Future Housing: No Difficulty Paying Gas/Electric Bills: No Difficulty Paying for Meds: No Currently Unemployed: No Education: Bachelor's Degree Difficulty w/ Childcare or Family Care: No Living arrangements: with family Spiritual care concerns: No Meds Home Medications and Allergies Home Medications Medication Instructions Recorded Confirmed Type allopurinol 300 mg tablet 300 mg PO DAILY 12/01/22 07/12/24 History clonidine HCl 0.1 mg tablet 0.1 mg PO BID 12/01/22 07/12/24 History metoprolol succinate 50 mg 50 mg PO DAILY 12/01/22 07/12/24 History tablet,extended release 24 hr ome
[2024-07-13 10:16] LABS: Basophils Percent Auto 0.6 % (0.2-1.2); Eosinophils Absolute Auto 0.1 K/mm3 (0-0.3); Eosinophils Percent Auto 1.5 % (0-4.4); Hematocrit 32.1 % (42.0-52.0); Hemoglobin 10.2 g/dL (14.0-18.0); Immature Granulocyte Absolute 0.01 K/mm3 (0.00-0.031); Immature Granulocyte Percent A 0.3 % (0-0.5); Immature Platelet Fraction Pct 1.6 % (0.9-11.2); Lymphocytes Absolute Auto 0.65 K/mm3 (0.9-3.2); Lymphocytes Percent Auto 19.1 % (18.3-44.2); Mean Corpuscular HGB Conc 31.8 g/dl (32-36); Mean Corpuscular Hemoglobin 26.1 pg (26-34); Mean Corpuscular Volume 82.1 fl (80-100); Mean Platelet Volume 10.3 fl (7.4-10.4); Monocytes Absolute Auto 0.3 K/mm3 (0.1-0.6); Monocytes Percent Auto 8.2 % (2.6-8.5); Neutrophils Absolute Auto 2.4 K/mm3 (1.3-6.7); Neutrophils Percent Auto 70.3 % (45.5-73.1); Platelet Count Result 133 k/mm3 (150-375); Red Blood Count 3.91 M/mm3 (4.6-6.20); Red Cell Distribution Width 14.6 % (11.5-14.5); White Blood Count 3.4 K/mm3 (4.5-10.0)
[2024-07-13] MEDS: PANTOPRAZOLE 40 MG TABLET PO ×2 (10:17→20:05)
[2024-07-13] MEDS: ENOXAPARIN 30 MG/0.3 ML SYRINGE SUB-Q (10:17)
[2024-07-13] MEDS: allopurinoL 300 MG TABLET PO (10:17)
[2024-07-13] MEDS: SIMVASTATIN 20 MG TABLET 40 MG PO (10:17)
[2024-07-13] MEDS: CYANOCOBALAMIN 1,000 MCG TABLET 1000 MCG PO (10:17)
[2024-07-13 10:46] LABS: Albumin Level 3.6 g/dL (3.5-5.1); Anion Gap 7 mmol/L (4-12); Blood Urea Nitrogen 25 mg/dL (9-20); Calcium 8.7 mg/dL (8.4-10.2); Carbon Dioxide 25 mmol/L (22-30); Chloride 107 mmol/L (98-107); Estimated CRCL calculation 29 ml/min; Estimated Glomerular Filt Rate 48; Glucose 88 mg/dL (65-110); Sodium 139 mmol/L (137-145)
[2024-07-13 10:59] LABS: Magnesium 1.5 mg/dL (1.6-2.3); Phosphorus 3.5 mg/dL (2.5-4.5); Potassium 3.8 mmol/L (3.4-5.0)
--- NOTE | 2024-07-13 16:10 | PM.IMPN ---
Progress Note: A&P Assessment and Plan (1) Bradycardia, sinus: Code(s): R00.1 - Bradycardia, unspecified Status: Acute Assessment and Plan: Patient presents with a fall and found to be bradycardic. He is on long-acting metoprolol and clonidine which were held. TSH 4.78 He does have confusion so he may be taking his medications inappropriately. He also may have an underlying conduction defect HR has lowly improved off the medications. Cardiology consulted and appreciate their input. Echo showing EF 60-65% and grade I diastolic dysfunction. ApneaLink ordered. Follow on tele (2) Fall from ground level: Code(s): W18.30XA - Fall on same level, unspecified, initial encounter Status: Acute Assessment and Plan: Patient states he tripped over his own feet falling to the ground. Chest x-ray was clear CT the brain no acute process but did show possible chronic fungal sinusitis Cervical spine CT shows severe cervical spondylosis but no acute osseous abnormalities. 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 Right elbow x-ray shows no acute findings. B12 low end of normal and this was replaced. Continue PT OT. (3) ADEEL (acute kidney injury): Code(s): N17.9 - Acute kidney failure, unspecified Status: Acute Assessment and Plan: Creatinine 1.7 on admission. Old labs reviewed through family shows he had normal creatinine function a month ago. Rheumatoid factor month ago was negative. SPEP showed no M spike. Which check renal ultrasound. Holding Maxzide. Normal saline x1 L. Renal US showing bilateral cysts o/w normal. Cr better at 1.4 Follow (4) Hypertension: Code(s): I10 - Essential (primary) hypertension Status: Acute Assessment and Plan: Patient's blood pressure was reviewed on 07/13 Blood pressure remains elevated. Family does state that patient does need manual blood pressure checks for accuracy. Holding clonidine, metoprolol for the bradycardia. Holding Maxzide given his acute kidney injury. Norvasc added and dose advanced today. Follow. (5) Sinusitis: Code(s): J32.9 - Chronic sinusitis, unspecified Status: Acute Assessment and Plan: CT the brain shows possible chronic fungal sinusitis at the left sphenoid sinus with small regions of dehiscence. This is adjacent to the basilar artery. 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 Similarly there is mild enhancing mucosal thickening along the posterior superior wall of the oropharynx overlying an additional small erosion along the inferior wall of the sinus. No evident intracranial abscess or other abnormally enhancing brain lesions. ENT consulted. Do not believe contributing to his current issues but will need to be evaluated as an outpatient. (6) Cognitive impairment: Code(s): R41.89 - Other symptoms and signs involving cognitive functions and awareness Status: Acute Assessment and Plan: Patient with cognitive impairment that the family has noted recently. 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 CT the brain noted here showing no acute process Folate and vitamin-D levels normal. B12 low end of normal and this was replaced. MMA ordered. More agitated and confused. Could be related to stopping the clonidine abruptly. Supportive care. Limit disruptions and vital signs. Discussed at length with family (7) Anemia: Code(s): D64.9 - Anemia, unspecified Status: Acute Assessment and Plan: Patient known to faiza
--- NOTE | 2024-07-13 16:20 | PC.NURSE ---
After a long discussion with family and patient. Family request patient be able to sleep at night uninterrupted . When awake cluster care as much as possible, including waiting for patient to wake up in the morning for lab draws. Made MD and charge nurse aware of request at this time.
[2024-07-14] VITALS (9 sets, daily range): BP systolic 133–195; BP diastolic 64–97; PULSE 52–86; RESP 16; TEMP 36.1–36.6; O2SAT 91–98
--- NOTE | 2024-07-14 00:49 | PCRCNOTE ---
Patient refused application of apnea link tonight. In addition, patient's family wants patient to get a full nights rest without interruption.
--- NOTE | 2024-07-14 08:30 | PM.PNCARD ---
Progress Note: A&P Assessment and Plan (1) Bradycardia, sinus: Code(s): R00.1 - Bradycardia, unspecified Status: Acute Assessment and Plan: He has sinus bradycardia with occasional PACs. So far on telemetry I did not see any pauses, high-degree AV blocks, or significant bradycardia. This is likely a result of medication misuse, possible that patient took more than the prescribed doses of antihypertensives including metoprolol and clonidine. Possible that he has underlying conduction system disease as well. Heart rate has now normalized. Some mild bradycardia during hours of sleep. Continue to hold metoprolol and clonidine Continue telemetry monitoring TSH mildly elevated, T4 normal Patient refused ApneaLink last night. Attempt again tonight. Echocardiogram showed normal LV function with no significant valvular pathology. (2) Hypertension: Code(s): I10 - Essential (primary) hypertension Status: Acute Assessment and Plan: Hypertensive now with discontinuation of metoprolol and clonidine. Continue amlodipine 10mg daily. Can use IV hydralazine p.r.n. while adjusting antihypertensive regimen. ADEEL improving, can add LAURA or ARB if additional BP control is necessary Plan Cardiology will sign off. Please call with questions. Subjective Date/time seen: 07/14/24 08:30 Interval history: Cardiology follow up for bradycardia Date of service 07/14/2024: He is alert today and has no complaints. Heart rate has improved. Review of Systems Review of Systems: ROS unobtainable: Yes unobtainable due to medical condition and unobtainable due to mental status Exam Const: General: comfortable, no acute distress, alert and awake Orientation/consciousness: patient oriented x3 HENMT: Head: normal to inspection Eyes: General: appearance normal, both eyes and all related structures Pupils: Equal, round and reactive pupils present Neck: Neck: normal visual inspection, supple and no JVD Resp: Effort & Inspection: normal respiratory effort Auscultation: clear to auscultation bilaterally Cardio: Rate: regular rate Rhythm: regular rhythm Heart sounds: S1 normal heart sound present, S2 normal heart sound present and no murmurs GI: Auscultation: normal bowel sounds Skin: General skin exam: normal color Neuro: General: No patient oriented x3 Cranial nerves: Yes Equal, round and reactive pupils present Extrem: General: normal to inspection Psych: Appearance: grossly normal Mental Status: mental status grossly abnormal Objective Data Vital Signs Vital Signs: Vital Signs - 24 hr 07/13/24 09:26 07/13/24 09:32 07/13/24 12:00 Temperature 36.3 C L 36.3 C L 36.1 C L Pulse Rate 40 L 40 L 103 H Respiratory Rate 18 18 20 Blood Pressure 186/55 H 186/55 H 158/70 H Pulse Oximetry 97 97 99 Oxygen Delivery 07/13/24 10:00 07/13/24 14:00 07/13/24 12:00 Temperature Pulse Rate 53 L 61 83 Respiratory Rate Blood Pressure Pulse Oximetry Oxygen Delivery 07/13/24 12:00 07/13/24 16:00 07/13/24 16:00 Temperature 36.6 C Pulse Rate 83 62 54 L Respiratory Rate 20 16 Blood Pressure 160/78 H Pulse Oximetry 99 99 Oxygen Delivery Room Air 07/13/24 16:00 07/13/24 18:00 07/13/24 19:24 Temperature 36.4 C Pulse Rate 62 80 60 Respiratory Rate 16 16 Blood Pressure 146/78 H Pulse Oximetry 99 98 Oxygen Delivery Room Air 07/13/24 20:00 07/13/24 20:00 07/13/24 22:00 Temperature Pulse Rate 57 L 57 L 54 L Respiratory Rate 16 Blood Pressure Pulse Oximetry 98 Oxygen Delivery Room Air 07/13/24 23:17 07/13/24 23:17 07/13/24 23:17 Temperature Pulse Rate 57 L 57 L 57 L Respiratory Rate 16 Blood Pressure Pulse Oximetry 98 Oxygen Delivery Room Air 07/14/24 02:00 07/14/24 04:00 07/14/24 04:00 Temperature Pulse Rate 52 L 52 L 52 L Respiratory Rate 16 Blood Pressure Pulse Oximetry 98 Oxygen Delivery Room Air
[2024-07-14] MEDS: PANTOPRAZOLE 40 MG TABLET PO (08:41)
[2024-07-14] MEDS: amLODIPine BESYLATE 10 MG TABLET PO (08:41)
[2024-07-14] MEDS: CYANOCOBALAMIN 1,000 MCG TABLET 1000 MCG PO (08:42)
[2024-07-14] MEDS: SIMVASTATIN 20 MG TABLET 40 MG PO (08:42)
[2024-07-14] MEDS: allopurinoL 300 MG TABLET PO (08:42)
[2024-07-14] MEDS: ENOXAPARIN 30 MG/0.3 ML SYRINGE SUB-Q (08:42)
[2024-07-14 10:28] LABS: Basophils Percent Auto 0.3 % (0.2-1.2); Eosinophils Absolute Auto 0.1 K/mm3 (0-0.3); Eosinophils Percent Auto 1.7 % (0-4.4); Hematocrit 31.1 % (42.0-52.0); Lymphocytes Absolute Auto 0.67 K/mm3 (0.9-3.2); Lymphocytes Percent Auto 19.1 % (18.3-44.2); Mean Corpuscular HGB Conc 32.2 g/dl (32-36); Mean Corpuscular Hemoglobin 25.7 pg (26-34); Mean Corpuscular Volume 79.9 fl (80-100); Mean Platelet Volume 9.6 fl (7.4-10.4); Monocytes Absolute Auto 0.3 K/mm3 (0.1-0.6); Monocytes Percent Auto 9.7 % (2.6-8.5); Neutrophils Absolute Auto 2.4 K/mm3 (1.3-6.7); Neutrophils Percent Auto 69.2 % (45.5-73.1); Platelet Count Result 121 k/mm3 (150-375); Red Blood Count 3.89 M/mm3 (4.6-6.20); Red Cell Distribution Width 14.6 % (11.5-14.5); White Blood Count 3.5 K/mm3 (4.5-10.0)
[2024-07-14 10:42] LABS: Alanine Aminotransferase 9 U/L (6-50); Albumin Level 3.5 g/dL (3.5-5.1); Alkaline Phosphatase 58 U/L (38-126); Anion Gap 7 mmol/L (4-12); Aspartate Amino Transferase 20 U/L (17-59); Bilirubin,Total 0.5 mg/dL (0.2-1.3); Blood Urea Nitrogen 18 mg/dL (9-20); Calcium 8.8 mg/dL (8.4-10.2); Carbon Dioxide 27 mmol/L (22-30); Chloride 106 mmol/L (98-107); Estimated CRCL calculation 29 ml/min; Estimated Glomerular Filt Rate 48; Glucose 108 mg/dL (65-110); Magnesium 1.4 mg/dL (1.6-2.3); Potassium 3.5 mmol/L (3.4-5.0); Sodium 140 mmol/L (137-145)
[2024-07-14] MEDS: hydrALAZINE HCL 20 MG/ML VIAL 10 MG IV PUSH (12:57)
--- NOTE | 2024-07-14 13:57 | PM.DS ---
DS: Admitting Diagnosis Discharge Date 07/14/24 Admitting Diagnosis Fall DS: Discharge Diagnosis Discharge Diagnosis (1) Bradycardia, sinus: Code(s): R00.1 - Bradycardia, unspecified Status: Acute (2) Fall from ground level: Code(s): W18.30XA - Fall on same level, unspecified, initial encounter Status: Acute (3) ADEEL (acute kidney injury): Code(s): N17.9 - Acute kidney failure, unspecified Status: Acute (4) Hypertension: Code(s): I10 - Essential (primary) hypertension Status: Acute (5) Sinusitis: Code(s): J32.9 - Chronic sinusitis, unspecified Status: Acute (6) Cognitive impairment: Code(s): R41.89 - Other symptoms and signs involving cognitive functions and awareness Status: Acute (7) Anemia: Code(s): D64.9 - Anemia, unspecified Status: Acute (8) GERD (gastroesophageal reflux disease): Code(s): K21.9 - Gastro-esophageal reflux disease without esophagitis Status: Acute DS: Summary Hospital Course Reason for hospitalization: 88yo male with cognitive impairment, HTN and GERD here for fall and found to have bradycardia. Please see H&P for details. Hospital Course: Patient presented with a fall and found to be bradycardic. Patient states he tripped over his own feet falling to the ground. Chest x-ray was clear. 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 Cervical spine CT shows severe cervical spondylosis but no acute osseous abnormalities. 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 Right knee x-ray shows arthroplasty with mild prepatellar soft tissue swelling but no effusion or acute osseous abnormalities. Right elbow x-ray shows no acute findings. B12 low end of normal and this was replaced. He worked with PT OT. Patient with underlying cognitive impairment that the family has noted recently. 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 Brain CT as above. Folate and vitamin-D levels normal. B12 low end of normal and this was replaced. MMA ordered. He became more agitated and confused. Could be related to stopping the clonidine abruptly and/or . Symptoms improved with supportive care. Workup also revealed ADEEL. Creatinine 1.7 on admission. Old labs reviewed through family shows he had normal creatinine function a month ago. Rheumatoid factor month ago was negative. SPEP showed no M spike. Renal ultrasound showed bilateral renal cysts but otherwise normal kidneys. We held Maxzide. Normal saline x1 L. Cr better at 1.4. 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 This is adjacent to the basilar artery. 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 Sinus MRI here showing left sphenoid sinusitis with mild enhancing dural thickening along the posterior margin of the clivus overlying a small erosion in the posterior wall of the left sphenoid sinus. Similarly there is mild enhancing mucosal thickening along the posterior superior wall of the oropharynx overlying an additional small erosion along the inferior wall of the sinus. No evident intracranial abscess or other abnormally enhancing brain lesions. ENT consulted but not seen prior to discharge. Do not believe this is contributing to his current issues and more likely an incidental findings. He will need to be evaluated by ENT as an outpatient. Patient known to be iron deficient anemia and this was noted here as well. Sources probably slow blood loss from polyps that have since been removed. Also noted today with low WBC and low platelet count. Related to B12 deficiency? UA negative and CXR clear. No evidence of sepsis. Home with iron replacement In regard to his bradycardia, he is on long-acting metoprolol and clonidine which were h
[2024-07-18 15:04] LABS: Methylmalonic Acid 579 nmol/L (85-423)
== END 2024-07-14 15:00 | disposition home or self-care (01) | DRG 918 ==
LOC: ANHED 23:26 → ANHIMU 07-12 00:25
PROVIDERS: Student in an Organized Health Care Education/Training Program; Admitting Provider Internal Medicine; Emergency Provider Emergency Medicine; PCP Internal Medicine; Visit Provider Internal Medicine
DX: T46.5X1A Poisoning by other antihypertensive drugs, accidental (unintentional), initial encounter (principal); N17.9 Acute kidney failure, unspecified; R00.1 Bradycardia, unspecified; D50.9 Iron deficiency anemia, unspecified; G31.84 Mild cognitive impairment of uncertain or unknown etiology; I10 Essential (primary) hypertension; J32.9 Chronic sinusitis, unspecified; K21.9 Gastro-esophageal reflux disease without esophagitis; M47.812 Spondylosis without myelopathy or radiculopathy, cervical region; M15.9 Polyosteoarthritis, unspecified; N28.1 Cyst of kidney, acquired; W19.XXXA Unspecified fall, initial encounter; Z87.891 Personal history of nicotine dependence; Z96.651 Presence of right artificial knee joint
CPT/HCPCS: 36415; 70450; 70543; 71045; 72125; 73070; 73120; 73562; 76775; 80053; 80069; 81003; 82550; 82607; 82728; 82746; 83540; 83550; 83690; 83735; 83921; 84439; 84443; 84480; 84484; 85025; 85055; 85610; 85730; 86038; 86039; 86160; 90471; 90715; 93005; 93306; 96361; 96372; 96374; 96375; 96376; 97110; 97116; 97161; 97165; 97530; 97535; 99285; A9270; A9577; G0378; J0360; J1650; J2060; J3420; J7030; J7120

== ENCOUNTER 2024-08-07 01:12 | Day surgery (SDC) | payer MEDICARE, OTHER, SELFPAY ==
--- NOTE | 2024-08-04 14:12 | PC.NURSE ---
Report to the Outpatient Waiting Room, entrance under the green pavilion located off [facility], at time 7 AM on date 08/07/24 . Planned Procedure Time: 9 AM .? Time changes happen often and if your time is changed the preop area will call you the afternoon before. - You and your visitor will be asked to self-screen and do not enter if you have any COVID symptoms. Please call surgeon if you need to reschedule. - A mask is optional within the hospital at this time. Patients may have clear liquids (water, carbonated beverages, clear teas, apple juice) until 3 hours prior to surgery( 6 AM) with a maximum of 20 ounces. - No food from midnight until time of surgery and no smoking - Infants may have breast milk until 4 hours before surgery, formula 6 hours prior to surgery. - Children will be allowed to drink immediately following surgery.? If applicable, please bring a bottle or sippy cup to assist with drinking. Juice, water, soda, and popsicles are readily available.? For infants on formula, please bring formula the day of surgery.? Pacifiers are allowed. Take only the following medications with a SIP of water on the morning of surgery: __AMLODIPINE,CARBIDOPA-LEVODOPA,LEVOTHYROXINE, DO NOT STOP ANY OF YOUR OTHER PRESCRIPTION MEDICATIONS PRIOR TO SURGERY EXCEPT THE FOLLOWING Medications to discontinue per physician HOLD ALL VITAMINS .LAST DOSE 08/04/24 Please no make-up, nail maltese, hairspray, perfume, deodorant, or body powder the day of surgery.? No jewelry (including any body piercings) or valuables the day of surgery, leave them at home.? Please take a shower or bath the night before, or the morning of, surgery with an antibacterial soap.? Wear comfortable, loose fitting clothing.? Children are encouraged to wear pajamas. - Jewelry must be removed prior to entering the operating room.? Rings and piercings that are not removed may be cut off. - The hospital will not accept responsibility for valuables.? - Please leave all valuables, including medications, at home the day of surgery. If you are going home after surgery, a licensed hazmat tanker driver must drive you home.? - NO public transportation without another adult if you receive anesthesia. - We recommend that an adult stay with you for 24 hours following discharge. - We also recommend that you do not drive, make important decision, drink alcoholic beverages, or take any drugs that were not prescribed by your health care provider for at least 24 hours after your discharge time. For Pediatric surgeries, we recommend two adults accompany the child home. Follow any additional instructions given to you from your surgeon. Telephone instructions given to _PT'S DAUGHTER TIARA and asked if any additional questions and then verbalized understanding. Patient advised to call surgeon office or pre surgery nurse liaison [phone] if any additional questions.
[2024-08-04 14:20] VITALS: BMI 23.4
[2024-08-07] VITALS (10 sets, daily range): BP systolic 136–159; BP diastolic 65–83; PULSE 75–94; RESP 12–16; TEMP 36.7; O2SAT 95–100
--- NOTE | 2024-08-07 07:11 | WPDHPUPDATE1 ---
History and Physical Update Update Date/Time: 08/07/24 07:11 History and Physical has been reviewed, including an updated exam of the patient. There are NO changes in the patient's condition. Risks, benefits, and alternatives have been discussed and questions answered. Patient agrees to proceed with procedure.
[2024-08-07] MEDS: LACTATED RINGERS 1,000 ML 30 ML IV CONT (07:25)
[2024-08-07] MEDS: ACETAMINOPHEN 500 MG TABLET 1000 MG PO (07:37)
--- NOTE | 2024-08-07 08:02 | WPDANESEPPF ---
Anes - Initial Pre Proc Eval Procedure: Operation Date: 08/07/24 09:00 Proposed Procedures p Image Guided Bilateral Ethmoidectomy, Bilateral Sphenoidotomy, Bilateral Maxillary Antrostomy, Bilateral Turbinated Outfracture, Possible Bilateral Frontal Sinusotomy - Reed Ellsworth MD Date/Time: 08/07/24 08:02 Surgeon: Reed Ellsworth MD Pre Op Diagnosis: Chr Sinusitis Patient Data Age: 88 Gender: M Height: 1.63 m Weight: 64 kg Last Vital Signs Temp 36.7 C 08/07/24 07:39 Pulse 94 08/07/24 07:39 Resp 16 08/07/24 07:39 BP 151/74 H 08/07/24 07:39 Pulse Ox 98 08/07/24 07:39 O2 Del Method Room Air 08/07/24 07:39 Allergies Allergy/AdvReac Type Severity Reaction Status Date / Time No Known Allergies Allergy Verified 08/07/24 07:38 Home Medications Medication Instructions Recorded Confirmed Type allopurinol 300 mg tablet 300 mg PO DAILY 12/01/22 08/04/24 History omeprazole 40 mg capsule,delayed 40 mg PO DAILY 12/01/22 08/04/24 History release levothyroxine 25 mcg tablet 25 mcg PO DAILY 07/12/24 08/07/24 History amlodipine 10 mg tablet 10 mg PO DAILY #30 tabs 07/14/24 08/07/24 Rx atorvastatin 20 mg tablet 20 mg PO DAILY #30 tabs 07/14/24 08/04/24 Rx cyanocobalamin (vitamin B-12) 1,000 mcg PO QAM #30 tabs 07/14/24 08/04/24 Rx 1,000 mcg tablet (Vitamin B-12) ferrous sulfate 325 mg (65 mg 325 mg PO DAILY #30 tabs 07/14/24 08/04/24 Rx iron) tablet valsartan 40 mg tablet 40 mg PO DAILY #30 tabs 07/14/24 08/04/24 Rx carbidopa 25 mg-levodopa 100 mg 0.5 tablet PO TID 08/04/24 08/07/24 History tablet Patient hx anesthesia problems: none Family hx anesthesia problems: none Results Review: All pre-operative results and documents have been reviewed as part of the pre-operative evaluation. REPLACED BY [facility] Past Medical History Medical History (Updated 08/07/24 @ 08:02 by Giovanny Shelby MD) GERD (gastroesophageal reflux disease) Hypertension Prostate CA Surgical History Surgical History (Updated 08/07/24 @ 08:02 by Giovanny Shelby MD) H/O prostatectomy Family History Family History Other Unknown family medical history Social History Social History Smoking status: Never smoker Alcohol intake: current Drinks per week: 2 Alcohol use details: occasionally Substance use: never Substance use type: does not use Do You Feel Safe in your Home?: Yes Lack of Transportation: No Lack of Food: Never True Current Housing: I Have Housing Concerned About Future Housing: No Difficulty Paying Gas/Electric Bills: No Difficulty Paying for Meds: No Currently Unemployed: No Education: Bachelor's Degree Difficulty w/ Childcare or Family Care: No Living arrangements: with family Spiritual care concerns: No Anes - Eval Final PreProcedure Day of Procedure 08/07/24 08:02 Patient weight: normal Heart: regular rate and rhythm Lungs: clear to auscultation Airway: Mallampati scale class II Neurological: alert and oriented Last oral intake: >/= 8 hours ASA classification: II Emergent: no Anesthetic plan: proceed Anesthesia type and monitoring: general ETT and standard monitoring Results Review: All pre-operative results and documents have been reviewed as part of the pre-operative evaluation. Informed Consent: The patient's anesthetic plan and its attendant risks and benefits were discussed with the patient/family/POA. Questions were solicited and answers provided to the satisfaction of the patient/family/POA.
--- NOTE | 2024-08-07 08:17 | W.PM.PROC2 ---
Procedure Note - Detailed Date of Procedure 08/07/24 Pre-op Diagnosis Chr Sinusitis Post-op Diagnosis Same Procedure Performed Bilateral frontal sinusotomy, total ethmoidectomy, maxillary antrostomy, sphenoidotomy, turbinate outfracture, image guided surgery Surgeon Reed Ellsworth MD Anesthesia General Indications chronic sinusitis Findings Left ossified sphenoid sinus with osteitis and thickened bone wall. Once the sinus was entered, thick mucous suctioned and irrigated out. No bony defect seen in the sphenoid sinus. Nasopore placed bilaterally Description of Procedure On the date of procedure the patient was met in the preoperative area and risk and benefits of the procedure reviewed with the patient as documented in the H&P and they elected to proceed with surgery. Patient was brought back to the operating room by the anesthesia team and underwent general endotracheal anesthesia. Once an adequate plane of anesthesia was obtained a timeout was performed to assure the patient identification the patient here to be performed were correct. They were.The patient was then prepped and draped in the normal fashion for endoscopic sinus surgery. The diffusion image guidance system was calibrated and used for the entire case. Afrin-soaked pledgets were placed in the nasal cavities bilaterally. The entire case was performed under endoscopic visualization. Nasal endoscopy was performed at the beginning of the case. 1% lidocaine with 1:100,000 epinephrine was then injected into the root of the middle turbinate and lateral nasal wall. Attention was first directed towards the left side. The middle turbinate was medialized and the osteomeatal complex was identified with a ethan probe. Using a 90 degree backbiter, the uncinate process was reflected anteriorly and removed using a combination of sharp and powered dissection. The maxillary antrostomy was then created and widened by identifying the natural ostia and opening the sinus with straight karly-cut forceps, backbiter, and microdebrider. Continuing with the microdebrider, the anterior ethmoid bulla was opened. Careful dissection was carried out posteriorly, through the basal lamella and posterior ethmoid cells until the sphenoid rostrum was identified. A Deion suction bluntly identified the sphenoid os and the opening was widened with microdebrider and mushroom punch to 5mm. Thick mucous was removed from the sphenoid using suction and copious irrigation. Using an image guided curved suction as well as J-curette, the posterior most ethmoid cell was identified and the ethmoids were bluntly fractured and dissected from posterior to anterior along the base of the skull. The remaining bone fragments were removed with appropriate curved instruments and microdebrider. Next, The right maxillary antrostomy, ethmoidectomy and sphenoidotomy were carried out in identical fashion. Upon completion of these portions of the procedure, attention was returned to the left side and balloon assisted frontal sinusotomy was performed under image guidance. After the sinus was opened, it was irrigated and some mucous was removed. This was repeated on the right. No clinical evidence of CSF throughout the case. With all sinuses opened nasopore packing was placed in the ethmoid acvities bilaterally. Hemostasis was ensured. Lastly, the bilateral inferior turbinates were outfractured bilaterally.. This significantly opened the airway. At this point, the procedure was concluded. Care the patient was transferred back to the anesthesia team and the patient was awoke in the operating room and transferred back to the PACU in stable condition. Reed Ellsworth M.D. Estimated Blood Loss 10 Drains No Packing Yes (nasopore) Pathology None sent Complications No immediate complications Condition Stable Disposition PACU
[2024-08-07] MEDS: ceFAZolin 2 GM/D5W 50 ML 2 GM/50 ML BAG IVPB (08:46)
[2024-08-07] MEDS: OXYMETAZOLINE HCL 0.05% NAS 15 ML BTL (*BKC) 1 SPRAY NASAL (09:18)
[2024-08-07] MEDS: LIDO 1%/EPINEPHRINE 1:100,000 20 ML VIAL INFILTRATE (09:20)
[2024-08-07] MEDS: MUPIROCIN 2% OINT 22 GM TUBE 1 APPLIC EACH NARE (10:03)
== END 2024-08-07 12:45 | disposition home or self-care (01) ==
PROVIDERS: PCP Family Medicine; Visit Provider Otolaryngology
PROC: (CPT 31256; principal; 2024-08-07 09:00)
DX: J32.3 Chronic sphenoidal sinusitis (principal); I10 Essential (primary) hypertension; K21.9 Gastro-esophageal reflux disease without esophagitis; Z98.890 Other specified postprocedural states; Z85.46 Personal history of malignant neoplasm of prostate
CPT/HCPCS: 31256; 31257; 31276; 30930; 61782; A9270; J0690; J1100; J2003; J2004; J2704; J3010; J7120

== ENCOUNTER 2024-08-12 18:01 | Inpatient (IN) | payer MEDICARE, OTHER, SELFPAY ==
[2024-08-12] VITALS (7 sets, daily range): BP systolic 144–160; BP diastolic 80–95; PULSE 85–94; RESP 15–25; TEMP 37.3; O2SAT 94–96
--- NOTE | ~2024-08-12 | CT_ITS ---
EXAMINATION: CT brain wo con DATE: 08/12/2024 21:12 INDICATION: Weakness TECHNIQUE: Computed tomography (CT) of the head was performed without intravenous contrast. The mA wa s adjusted according to patient size. Iterative reconstruction technique was employed. Exam dose: 75 6.67 mGy-cm total exam DLP. COMPARISON: 07/11/2024 CT brain FINDINGS: Right vertebral artery and bilateral carotid siphon internal carotid artery calcifications. There is central and cortical cerebral and cerebellar atrophy. No intracranial mass lesion or hemorrhage or cerebrovascular accident, midline shift or mass effect i s detected. No subdural or epidural hematoma. No orbital mass lesion. Fluid levels are noted in the maxillary sinuses. There is prominent patchy opacification of bilateral ethmoid Air cells. Nearly complete opacification of right sphenoid sinus, fluid level in left sphenoid sinus. There is m ucoperiosteal thickening of both maxillary sinuses. The mastoid air cells are unremarkable bilaterally. IMPRESSION: No acute intracranial finding Pansinusitis Reviewed, dictated and finalized at [facility] Reviewed, dictated and finalized at [facility].
--- NOTE | ~2024-08-12 | XR_ITS ---
XR chest 2V DATE: 08/12/2024 18:56 INDICATION: Shortness of breath with exertion. Hypertension. TECHNIQUE: AP and lateral views COMPARISON: 07/11/2024 portable AP chest FINDINGS: Cardiomegaly. No hilar or mediastinal enlargement. No pulmonary infiltrate or consolidation, pleural effusion or pulmonary vascular congestion or pneumo thorax is detected. Prominent bilateral glenohumeral osteoarthritis. There is mild thoracic dextroscoliosis. Degenerative spurring of the thoracic spine. IMPRESSION: Cardiomegaly No active pulmonary disease Reviewed, dictated and finalized at [facility].
--- NOTE | 2024-08-12 18:14 | ECG_ITS ---
Test Date: 2024-08-12 18:19:51 Measurements Intervals [place] Rate: 96 P: 56 WI: 162 QRS: -42 QRSD: 92 T: 47 QT: 382 QTc: 484 Interpretive Statements SINUS RHYTHM WITH OCCASIONAL VENTRICULAR PREMATURE COMPLEXES MARKED LEFT AXIS DEVIATION [QRS AXIS < -30] ABNORMAL ECG Compared to ECG 07/12/2024 09:36:13 Ventricular premature complex(es) now present Sinus bradycardia no longer present Incomplete right bundle-branch block no longer present Left ventricular hypertrophy no longer present Myocardial infarct finding no longer present Electronically Signed On 08-13-2024 13:06:45 CDT by Mor Wiggins M.D.
[2024-08-12 18:40] LABS: Basophils Percent Auto 0.2 % (0.2-1.2); Eosinophils Percent Auto 0.2 % (0-4.4); Hematocrit 29.1 % (42.0-52.0); Hemoglobin 9.4 g/dL (14.0-18.0); Immature Granulocyte Absolute 0.02 K/mm3 (0.00-0.031); Immature Granulocyte Percent A 0.3 % (0-0.5); Lymphocytes Absolute Auto 0.64 K/mm3 (0.9-3.2); Lymphocytes Percent Auto 10.2 % (18.3-44.2); Mean Corpuscular HGB Conc 32.3 g/dl (32-36); Mean Corpuscular Hemoglobin 25.5 pg (26-34); Mean Corpuscular Volume 79.1 fl (80-100); Mean Platelet Volume 9.2 fl (7.4-10.4); Monocytes Absolute Auto 0.6 K/mm3 (0.1-0.6); Neutrophils Absolute Auto 5.1 K/mm3 (1.3-6.7); Neutrophils Percent Auto 80.1 % (45.5-73.1); Platelet Count Result 172 k/mm3 (150-375); Red Blood Count 3.68 M/mm3 (4.6-6.20); Red Cell Distribution Width 16.5 % (11.5-14.5); White Blood Count 6.3 K/mm3 (4.5-10.0)
[2024-08-12 19:03] LABS: Alanine Aminotransferase 7 U/L (6-50); Albumin Level 3.4 g/dL (3.5-5.1); Alkaline Phosphatase 58 U/L (38-126); Anion Gap 8 mmol/L (4-12); Aspartate Amino Transferase 17 U/L (17-59); Bilirubin,Total 0.9 mg/dL (0.2-1.3); Blood Urea Nitrogen 10 mg/dL (9-20); Calcium 5.5 mg/dL (8.4-10.2); Carbon Dioxide 29 mmol/L (22-30); Chloride 104 mmol/L (98-107); Estimated CRCL calculation 43 ml/min; Estimated Glomerular Filt Rate > 60; Glucose 111 mg/dL (65-110); Sodium 141 mmol/L (137-145)
[2024-08-12 20:13] LABS: Magnesium 0.4 mg/dL (1.6-2.3)
[2024-08-12] MEDS: MAGNESIUM SULF 2 GM/WATER 50ML 2 GM/50 ML BAG IVPB ×2 (20:20→23:25)
[2024-08-12] MEDS: SODIUM CHLORIDE 0.9% IV 1,000 ML 30 ML IV CONT (20:20)
[2024-08-12 20:26] LABS: Parathyroid Intact 42.8 pg/mL (14.5-75.2)
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
[2024-08-12] MEDS: CALCIUM GLUC 2,000 MG/NS 100ML 2,000 MG/100 ML BAG 100 MG IVPB (20:37)
[2024-08-12] MEDS: IBUPROFEN 600 MG TABLET PO (20:59)
[2024-08-12] MEDS: KCL 20 MEQ/SW 100 ML 100 ML 50 MEQ IVPB (21:36)
--- NOTE | 2024-08-12 23:25 | ADMGEN ---
This patient, Jose L Santos, was admitted to IMU Room 204-01 on 08/12/24 at 2305. Patient/family oriented to hospital policies and general routines including ID bracelet, bed and alarms, visiting hours, pain management, procedures, bathroom and other care routines, personal items, smoking policy, room service/diet, and visiting hours. Information on how to activate the Rapid Response Team has been discussed. Patient/Family are encouraged to report perceived risks to care and to ask questions if they do not understand what they are told or what they should do.
[2024-08-13] VITALS (12 sets, daily range): BP systolic 138–169; BP diastolic 58–96; PULSE 71–105; RESP 16–20; TEMP 36.6–37.1; O2SAT 94–97; BMI 21.7
--- NOTE | 2024-08-13 00:37 | PM.IMHP ---
H&P: HPI History of Present Illness Date/Time: 08/13/24 00:37 Chief Complaint: Diarrhea and weakness Narrative: 88-year-old male accompanied by his son-in-law and daughter. The patient has had progressive memory issues to which the family thinks he has dementia. As such, the patient cannot provide accurate history. Aside from his progressive cognitive decline the patient has been in his usual physical state prior to 2 days ago. He did have a bilateral frontal sinus sinusotomy and other associated procedures on 08/07/[address] Seng JEFFRIES. He has history of hypertension, GERD, hypothyroidism, likely dementia as mentioned above. He has also seen a neurologist recently and was started on carbidopa levodopa. Carbidopa levodopa dose was just increased on Wednesday which is 4 days prior to admission. The patient is brought in because of diarrhea and increased confusion. For 2 days prior to admission he has had difficulty ambulating and stumbling around. He has had looked diarrhea for 2 days they cannot further qualify or quantify it. The patient cannot provide much history either. In fact, he reports he did not have diarrhea. Denies abdominal pain. Denies blood per rectum. Denies fever. Denies nausea or vomiting. He reports being his usual self. Family reports the patient has not been eating as much as usual. Patient did not have any diarrhea while in the ER a laboratory workup revealed a hemoglobin of 9.4, potassium 3.0, glucose 111, calcium 5.5, CT albumin 3.4, magnesium 0.4. Chest x-ray and head CT did not demonstrate any cardiopulmonary disease or acute intracranial finding. Pansinusitis is identified. Patient given calcium gluconate to g, magnesium 4 g, potassium 20 mEq rider. Patient does not have classic signs of hypocalcemia. EKG demonstrates sinus rhythm occasional PVC. QRS 92. QTC 44. Review of Systems Review of Systems: All systems reviewed & are unremarkable except as noted in HPI and below (Subjective) [facility] Past Medical History Medical History (Updated 08/13/24 @ 01:08 by Yessi Smith MD) GERD (gastroesophageal reflux disease) Gout Hypertension Hypothyroidism Prostate CA Surgical History Surgical History (Updated 08/07/24 @ 08:02 by Giovanny Shelby MD) H/O prostatectomy Family History Family History Other Unknown family medical history Social History Social History Smoking status: Never smoker Alcohol intake: never Drinks per week: 2 Alcohol use details: occasionally Substance use: never Substance use type: does not use Do You Feel Safe in your Home?: Yes Lack of Transportation: No Lack of Food: Never True Current Housing: I Have Housing Concerned About Future Housing: No Difficulty Paying Gas/Electric Bills: No Difficulty Paying for Meds: No Currently Unemployed: No Education: Decline to Answer Difficulty w/ Childcare or Family Care: YES Living arrangements: with family Spiritual care concerns: No Meds Home Medications and Allergies Home Medications Medication Instructions Recorded Confirmed Type allopurinol 300 mg tablet 300 mg PO DAILY 12/01/22 08/12/24 History omeprazole 40 mg capsule,delayed 40 mg PO DAILY 12/01/22 08/12/24 History release levothyroxine 25 mcg tablet 25 mcg PO DAILY 07/12/24 08/12/24 History amlodipine 10 mg tablet 10 mg PO DAILY #30 tabs 07/14/24 08/12/24 Rx atorvastatin 20 mg tablet 20 mg PO DAILY #30 tabs 07/14/24 08/12/24 Rx cyanocobalamin (vitamin B-12) 1,000 mcg PO QAM #30 tabs 07/14/24 08/12/24 Rx 1,000 mcg tablet (Vitamin B-12) ferrous sulfate 325 mg (65 mg 325 mg PO DAILY #30 tabs 07/14/24 08/12/24 Rx iron) tablet valsartan 40 mg tablet 40 mg PO DAILY #30 tabs 07/14/24 08/12/24 Rx carbidopa 25 mg-levodopa 100 mg 0.5 tablet PO TID 08/04/24 08/12/24 History tablet hydrocodone 5 mg-acetaminophen 325 1 tablet PO Q4H PRN pain #20 tabs 08/07/24 08/12/24 Rx mg tablet sodium chloride 0.65 % nasal mist 1 spray intranasal Q6H 08/12/24 08/13/24 History Allergies Allergy/AdvReac Type Severity Reaction Status Date / Time No Known Allergies Allergy Verified 08/07/24 07:38 Vital Signs Vital Signs - 24 hr 08/12/24 18:04 08/12/24 18:12 08/12/24 19:20 Temperature 99.2 F Pulse Rate 94 89 Respiratory Rate 20 18 Blood Pressure 160/92 H 144/80 H Pulse Oximetry 95 95 94 Oxygen Delivery Room Air Room Air 08/12/24 20:50 08/12/24 22:31 08/12/24 22:50 Temperature Pulse Rate 92 93 89 Respiratory Rate 25 H 17 15 Blood Pressure 146/95 H 152/90 H Pulse Oximetry 96 96 96 Oxygen Delivery 08/13/24 00:00 08/13/24 00:00 08/13/24 00:18 Temperature 98.4 F Pulse Rate 86 Respiratory Rate 20 Blood Pressure 161/58 H 138/62 Pulse Oximetry 96 Oxygen Delivery Room Air Exam Const: General: comfortable and no acute distress Other: Pleasantly confused. A&O x1. HENMT: Mouth: Yes moist mucous membranes Eyes: Pupils: Equal, round and reactive pupils present Neck: Neck: supple Resp: Effort & Inspection: normal respiratory effort Auscultation: clear to auscultation bilaterally Cardio: Rate: regular rate Rhythm: regular rhythm GI: GI Palp: Yes Soft to palpation and No Tenderness to palpation present (GI) Neuro: Other: Globally weak. No myoclonus. Extrem: General: no edema H&P: Results Labs Labs: Short CBC 08/12/24 Range/Units 18:33 WBC 6.3 (4.5-10.0) K/mm3 Hgb 9.4 L (14.0-18.0) g/dL Hct 29.1 L (42.0-52.0) % Plt Count 172 (150-375) k/mm3 BMP 08/12/24 18:33 Sodium 141 Potassium 3.0 L Chloride 104 Carbon Dioxide 29 BUN 10 D Creatinine 0.90 Glucose 111 H Calcium 5.5 L* Liver Function 08/12/24 Range/Units 18:33 Total Bilirubin 0.9 (0.2-1.3) mg/dL AST 17 (17-59) U/L ALT 7 (6-50) U/L Alkaline Phosphatase 58 (38-126) U/L Albumin 3.4 L (3.5-5.1) g/dL Assessment and Plan Assessment and plan (1) Hypocalcemia: Code(s): E83.51 - Hypocalcemia Status: Acute (2) Hypomagnesemia: Code(s): E83.42 - Hypomagnesemia Status: Acute (3) Acute hypokalemia: Code(s): E87.6 - Hypokalemia Status: Acute (4) Cognitive impairment: Code(s): R41.89 - Other symptoms and signs involving cognitive functions and awareness Status: Acute (5) Hypertension: Code(s): I10 - Essential (primary) hypertension Status: Acute (6) Anemia: Code(s): D64.9 - Anemia, unspecified Status: Acute (7) GERD (gastroesophageal reflux disease): Code(s): K21.9 - Gastro-esophageal reflux disease without esophagitis Status: Acute (8) Hypothyroidism: Code(s): E03.9 - Hypothyroidism, unspecified Status: Acute (9) Gout: Code(s): M10.9 - Gout, unspecified Status: Acute Plan 88-year-old male accompanied by his son-in-law and daughter. The patient has had progressive memory issues to which the family thinks he has dementia. As such, the patient cannot provide accurate history. Aside from his progressive cognitive decline the patient has been in his usual physical state prior to 2 days ago. He did have a bilateral frontal sinus sinusotomy and other associated procedures on 08/07/2024 due to chronic sinusitis with Dr. Seng JEFFRIES. He has history of hypertension, GERD, hypothyroidism, likely dementia as mentioned above, suspected Parkinson's. He has also seen a neurologist recently and was started on carbidopa levodopa. Carbidopa levodopa dose was just increased on Wednesday which is 4 days prior to admission. The patient is brought in because of diarrhea and increased confusion. For 2 days prior to admission he has had difficulty ambulating and stumbling around. He has had looked diarrhea for 2 days they cannot further qualify or quantify it. The patient cannot provide much history either. In fact, he reports he did not have diarrhea. Denies abdominal pain. Denies blood per rectum. Denies fever. Denies nausea or vomiting. He reports being his usual self. Family reports the patient has not been eating as much as usual. Patient did not have any diarrhea while in the ER a laboratory workup revealed a hemoglobin of 9.4, potassium 3.0, glucose 111, calcium 5.5, CT albumin 3.4, magnesium 0.4. Chest x-ray and head CT did not demonstrate any cardiopulmonary disease or acute intracranial finding. Pansinusitis is identified. Patient given calcium gluconate to g, magnesium 4 g, potassium 20 mEq rider. Patient does not have classic signs of hypocalcemia. EKG demonstrates sinus rhythm occasional PVC. QRS 92. QTC 44. ----- Status post electrolyte replacement above, will recheck labs now and continue to replace as appropriate. Patient will be admitted to telemetry. The electrolyte abnormalities likely due to diarrhea. The diarrhea is possibly due to carbidopa levodopa which was recently increased on Wednesday which is 4 days prior to admission. We will withhold carbidopa levodopa and administer Imodium. Start lactated Ringer's at 100 cc/hour. The diarrhea does not resolve then other etiologies should be investigated. ----- SCDs. Regular diet. Lactated Ringer's. Replacing electrolytes. PTOT. Patient wishes to be full code. Hospitalist MIPS Advance Care Plan I have confirmed that the patient's Advanced Care Plan is present, code status is documented, or surrogate decision maker is listed in patient medical record.: Yes Medication Reconciliation I have utilized all available resources to obtain, update and review the patients current medications (includes all prescriptions, OTC, herbals, cannabis, and nutritional supplements).: Yes
[2024-08-13] MEDS: LACTATED RINGERS 1,000 ML 100 ML IV CONT (00:57)
[2024-08-13 01:33] LABS: Alanine Aminotransferase 8 U/L (6-50); Albumin Level 3.2 g/dL (3.5-5.1); Alkaline Phosphatase 66 U/L (38-126); Anion Gap 9 mmol/L (4-12); Aspartate Amino Transferase 17 U/L (17-59); Blood Urea Nitrogen 10 mg/dL (9-20); Calcium 6.1 mg/dL (8.4-10.2); Carbon Dioxide 27 mmol/L (22-30); Chloride 104 mmol/L (98-107); Estimated CRCL calculation 48 ml/min; Estimated Glomerular Filt Rate > 60; Glucose 96 mg/dL (65-110); Magnesium 1.5 mg/dL (1.6-2.3); Phosphorus 4.2 mg/dL (2.5-4.5); Potassium 2.6 mmol/L (3.4-5.0); Sodium 140 mmol/L (137-145)
[2024-08-13] MEDS: POTASSIUM CHLORIDE 20 MEQ ER TABLET 40 MEQ PO (01:53)
[2024-08-13] MEDS: LOPERAMIDE HCL 2 MG CAPSULE 4 MG PO (01:54)
[2024-08-13] MEDS: CALCIUM GLUC 2,000 MG/NS 100ML 2,000 MG/100 ML BAG 100 MG IVPB (01:58)
[2024-08-13] MEDS: MAGNESIUM SULF 2 GM/WATER 50ML 2 GM/50 ML BAG IVPB (01:58)
[2024-08-13] MEDS: POTASSIUM CHLORIDE INJ 40 MEQ in SODIUM CHLORIDE 0.9% IV 500 ML 130 MEQ IVPB (01:59)
[2024-08-13 05:13] LABS: Alanine Aminotransferase 8 U/L (6-50); Albumin Level 3.1 g/dL (3.5-5.1); Alkaline Phosphatase 64 U/L (38-126); Anion Gap 8 mmol/L (4-12); Aspartate Amino Transferase 15 U/L (17-59); Bilirubin,Total 0.9 mg/dL (0.2-1.3); Blood Urea Nitrogen 9 mg/dL (9-20); Calcium 6.7 mg/dL (8.4-10.2); Carbon Dioxide 26 mmol/L (22-30); Chloride 106 mmol/L (98-107); Estimated CRCL calculation 55 ml/min; Estimated Glomerular Filt Rate > 60; Glucose 88 mg/dL (65-110); Magnesium 2.3 mg/dL (1.6-2.3); Potassium 3.2 mmol/L (3.4-5.0); Sodium 140 mmol/L (137-145)
[2024-08-13] MEDS: LEVOTHYROXINE SODIUM 25 MCG TABLET PO (06:09)
[2024-08-13] MEDS: SALINE 0.65% NAS SOLN 44 ML BTL 1 SPRAY NASAL ×3 (06:09→18:31)
[2024-08-13 08:05] LABS: Anion Gap 9 mmol/L (4-12); Blood Urea Nitrogen 9 mg/dL (9-20); Carbon Dioxide 26 mmol/L (22-30); Chloride 108 mmol/L (98-107); Estimated CRCL calculation 63 ml/min; Estimated Glomerular Filt Rate > 60; Glucose 81 mg/dL (65-110); Potassium 3.5 mmol/L (3.4-5.0); Sodium 143 mmol/L (137-145)
--- NOTE | 2024-08-13 08:41 | P.PNIM_ITS ---
Progress Note: A&P Assessment and Plan (1) Hypocalcemia: Code(s): E83.51 - Hypocalcemia Status: Acute Assessment and Plan: * GI losses plus poor intake likely etiology as PTH WNL, Phos WNL * 08/12 Ca 7.0 with albumin 3.1, corrected Ca 7.7, eating well, so d/c IVF, PO CaCO3 started, transfer to medical floor (2) Hypomagnesemia: Code(s): E83.42 - Hypomagnesemia Status: Acute Assessment and Plan: * As above * Resolved (3) Acute hypokalemia: Code(s): E87.6 - Hypokalemia Status: Acute Assessment and Plan: * As above * Resolved (4) Diarrhea: Code(s): R19.7 - Diarrhea, unspecified Status: Acute Assessment and Plan: * Seems to have resolved * Viral vs medication reaction * 08/12 COVID 19 swab * 08/12 PT/OT * Stool studies if diarrhea recurs (5) Cognitive impairment: Code(s): R41.89 - Other symptoms and signs involving cognitive functions and awareness Status: Acute Assessment and Plan: * Recently started on carbidopa-levodopa by a neurologist, presumably for parkinsonism * Unlikely cause of diarrhea but holding for now * 08/12 CT brain with pansinusitis (s/p recent sinus surgery) but no acute intracranial process (6) Hypertension: Code(s): I10 - Essential (primary) hypertension Status: Acute Assessment and Plan: * 08/12 153/70 * Continue Valsartan and amlodipine * Monitor (7) Anemia: Code(s): D64.9 - Anemia, unspecified Status: Acute Assessment and Plan: * Known iron deficiency and borderline low B12 level * EGD 12/2022 with NERD and gastritis * Colonoscopy 12/2022 with polyps * No gross bleeding * Home meds do not include iron or B12 supplementation, so check levels and supplement appropriately (8) GERD (gastroesophageal reflux disease): Code(s): K21.9 - Gastro-esophageal reflux disease without esophagitis Status: Acute Assessment and Plan: * Continue PPI (9) Hypothyroidism: Code(s): E03.9 - Hypothyroidism, unspecified Status: Acute Assessment and Plan: * Continue levothyroxine (10) Gout: Code(s): M10.9 - Gout, unspecified Status: Acute Assessment and Plan: * Continue allopurinal (11) Protein-calorie malnutrition, mild: Code(s): E44.1 - Mild protein-calorie malnutrition Status: Acute Assessment and Plan: * Likely a contributing factor to his acute issues Subjective Date/time seen: 08/13/24 08:41 Interval history: Feels great today. Tolerated breakfast. No diarrhea since admission. Denied chest pain or shortness of breath. Denied focal weakness. Is a bit confused. Does remember the last colonoscopy was over 10 years ago. Denied any prior history of iron deficiency or anemia. He does not recall having any diarrhea at home. Review of Systems Review of Systems: All systems reviewed & are unremarkable except as noted in HPI and below Exam Narrative: HEENT: PERRL, sclerae nonicteric, pharyngeal mucosa pink and intact NECK: No JVD, adenopathy, or thyromegaly CHEST: Clear to auscultation. Normal effort. HEART: NL S1/S2, regular, no murmur ABDOMEN: BS HYPERACTIVE, soft, nontender, no mass, no bruits EXTREMITIES: No cyanosis, edema, or clubbing NEUROLOGIC: CN intact and symmetric to inspection. MUSCULOSKELETAL: Tone and strength symmetric. PSYCH: Alert. Pleasant and cooperative. Oriented to person. Objective Data Vital Signs Vital Signs: Vital Signs - 24 hr 08/12/24 18:04 08/12/24 18:12 08/12/24 19:20 Temperature 99.2 F Pulse Rate 94 89 Respiratory Rate 20 18 Blood Pressure 160/92 H 144/80 H Pulse Oximetry 95 95 94 Oxygen Delivery Room Air Room Air Fraction of Inspired Oxygen 08/12/24 20:50 08/12/24 22:31 08/12/24 22:50 Temperature Pulse Rate 92 93 89 Respiratory Rate 25 H 17 15 Blood Pressure 146/95 H 152/90 H Pulse Oximetry 96 96 96 Oxygen Delivery Fraction of Inspired Oxygen 08/13/24 00:00 08/13/24 00:00 08/13/24 00:18 Temperature 98.4 F Pulse Rate 86 Respiratory Rate 20 Blood Pressure 161/58 H 138/62 Pulse Oximetry 96 Oxygen Delivery Room Air Fraction of Inspired Oxygen 08/12/24 23:16 08/13/24 00:00 08/13/24 02:00 Temperature Pulse Rate 85 81 77 Respiratory Rate Blood Pressure Pulse Oximetry Oxygen Delivery Fraction of Inspired Oxygen 08/13/24 04:00 08/13/24 04:00 08/13/24 04:00 Temperature 98.3 F Pulse Rate 81 71 Respiratory Rate 20 Blood Pressure 160/66 H Pulse Oximetry 96 Oxygen Delivery Room Air Fraction of Inspired Oxygen 08/13/24 06:00 08/13/24 07:26 08/13/24 07:38 Temperature 98.1 F Pulse Rate 92 96 Respiratory Rate 18 Blood Pressure 153/70 H Pulse Oximetry 94 96 Oxygen Delivery Room Air Fraction of Inspired Oxygen 21 Intake/Output Intake/Output: Intake & Output 08/10/24 08/11/24 08/12/24 08/13/24 23:59 23:59 23:59 23:59 Intake Total 150 900.7 Balance 150 900.7 Meds/Results Medications: Active Medications Generic Name Dose Route Start Last Admin Trade Name Freq PRN Reason Stop Dose Admin Hydrocodone Bitart/Acetaminophen 1 tab 08/13/24 00:32 Hydrocodone/Acetaminophen (*Crx) 5-325 Mg Tablet PO Q4H PRN pain 4-6 Allopurinol 300 mg 08/13/24 09:00 Allopurinol 300 Mg Tablet PO DAILY KARTHIK Amlodipine Besylate 10 mg 08/13/24 09:00 Amlodipine Besylate 10 Mg Tablet PO DAILY KARTHIK Atorvastatin Calcium 20 mg 08/13/24 09:00 Atorvastatin 20 Mg Tablet PO DAILY [facility] Cyanocobalamin 1,000 mcg 08/13/24 09:00 Cyanocobalamin 1,000 Mcg Tablet PO QAM [facility] Ferrous Sulfate 325 mg 08/13/24 12:00 Ferrous Sulfate [address] PO DAILY@1200 [facility] Lactated Ringer's 1,000 mls @ 100 mls/hr 08/13/24 00:35 08/13/24 00:57 Lr - Lactated Ringers Iv IV CONT 100 mls/hr .Q10H KARTHIK Administration Levothyroxine Sodium 25 mcg 08/13/24 06:30 08/13/24 06:09 Levothyroxine Sodium 25 Mcg Tablet PO 25 mcg DAILY@0630 KARTHIK Administration Loperamide HCl 2 mg 08/13/24 00:31 Loperamide Hcl 2 Mg Capsule PO PRN PRN Diarrhea Pantoprazole Sodium 40 mg 08/13/24 09:00 Pantoprazole 40 Mg Tablet PO Q12HR [facility] Sodium Chloride 1 spray 08/13/24 06:00 08/13/24 06:09 Saline 0.65% Rodrigo Soln 44 Ml Btl NASAL 1 spray Q6HR KARTHIK Administration Valsartan 40 mg 08/13/24 09:00 Valsartan 40 Mg Tablet PO DAILY [facility] Radiology Results: ITS Impressions Chest X-Ray 08/12/24 19:06 IMPRESSION: Cardiomegaly No active pulmonary disease Head CT 08/12/24 21:23 IMPRESSION: No acute intracranial finding Pansinusitis Labs Labs: Laboratory Results - last 24 hr 08/12/24 08/13/24 08/13/24 18:33 00:55 04:29 WBC 6.3 RBC 3.68 L Hgb 9.4 L Hct 29.1 L MCV 79.1 L MCH 25.5 L MCHC 32.3 RDW 16.5 H Plt Count 172 MPV 9.2 Immature Gran % (Auto) 0.3 Neut % (Auto) 80.1 H Lymph % (Auto) 10.2 L [place] % (Auto) 9.0 H Eos % (Auto) 0.2 Baso % (Auto) 0.2 Lymph # (Auto) 0.64 L [place] # (Auto) 0.6 Eos # (Auto) 0.0 Baso # (Auto) 0.0 Abs Immat Gran (auto) 0.02 Absolute Neuts (auto) 5.1 Absolute Nucleated RBC 0.000 Nucleated RBC % 0.0 Sodium 141 140 140 Potassium 3.0 L 2.6 L* 3.2 L Chloride 104 104 106 Carbon Dioxide 29 27 26 Anion Gap 8 9 8 BUN 10 D 10 9 Creatinine 0.90 0.80 0.70 Estim Creat Clear Calc 43 48 55 Estimated GFR > 60 > 60 > 60 Glucose 111 H 96 88 Calcium 5.5 L* 6.1 L 6.7 L Phosphorus 4.2 Magnesium 0.4 L 1.5 L 2.3 Total Bilirubin 0.9 1.0 0.9 AST 17 17 15 L ALT 7 8 8 Alkaline Phosphatase 58 66 64 Total Protein 6.0 L 6.0 L 6.0 L Albumin 3.4 L 3.2 L 3.1 L PTH Intact 42.8 08/13/24 07:27 WBC RBC Hgb Hct MCV MCH MCHC RDW Plt Count MPV Immature Gran % (Auto) Neut % (Auto) Lymph % (Auto) [place] % (Auto) Eos % (Auto) Baso % (Auto) Lymph # (Auto) [place] # (Auto) Eos # (Auto) Baso # (Auto) Abs Immat Gran (auto) Absolute Neuts (auto) Absolute Nucleated RBC Nucleated RBC % Sodium 143 Potassium 3.5 Chloride 108 H Carbon Dioxide 26 Anion Gap 9 BUN 9 Creatinine 0.60 L Estim Creat Clear Calc 63 Estimated GFR > 60 Glucose 81 Calcium 7.0 L Phosphorus Magnesium Total Bilirubin AST ALT Alkaline Phosphatase Total Protein Albumin PTH Intact
[2024-08-13] MEDS: PANTOPRAZOLE 40 MG TABLET PO ×2 (09:26→20:12)
[2024-08-13] MEDS: amLODIPine BESYLATE 10 MG TABLET PO (09:26)
[2024-08-13] MEDS: ATORVASTATIN 20 MG TABLET PO (09:26)
[2024-08-13] MEDS: CYANOCOBALAMIN 1,000 MCG TABLET 1000 MCG PO (09:26)
[2024-08-13] MEDS: VALSARTAN 40 MG TABLET PO (09:26)
[2024-08-13] MEDS: allopurinoL 300 MG TABLET PO (09:26)
[2024-08-13 10:38] LABS: SARS-CoV-2 RNA PCR Negative (Negative)
[2024-08-13] MEDS: CALCIUM CARBONATE (OSCAL) 500 MG TABLET PO ×2 (12:10→18:09)
[2024-08-13] MEDS: FERROUS SULFATE 325 MG TABLET DR PO (12:10)
[2024-08-13 12:20] LABS: Immature Reticulocyte Fraction 15.5 % (3.0-15.9); Reticulocyte Percent 1.19 % (0.7-4.3); Reticulocytes Absolute 0.04 10^6/uL (0.02-0.10)
[2024-08-13 12:56] LABS: Iron 15 ug/dL (49-181)
[2024-08-13 13:06] LABS: Percent Iron Saturation 6 % (20-50)
[2024-08-13 13:28] LABS: Thyroid Stimulating Hormone Reflex 0.962 uIU/mL (0.465-4.68)
--- NOTE | 2024-08-13 13:30 | PC.NURSE ---
This RN gave report to 3[facility] RNT[facility].
[2024-08-13 13:40] LABS: Folic Acid 7.5 ng/mL (2.76->20)
[2024-08-13 13:48] LABS: Vitamin D 25 Hydroxy < 12.8 ng/mL
--- NOTE | 2024-08-13 13:56 | PC.NURSE ---
pt transferred to 3[facility] room 331.
--- NOTE | 2024-08-13 15:32 | PC.NURSE ---
This patient, Jose L Santos, was received from IMU on 08/13/24 at 1400. Patient/family oriented to unit policies and routines. Sitter at bedside, daughter at bedside. Alarms set to bed.
--- NOTE | 2024-08-13 16:44 | PCDIET ---
Patient family reports patient recently colonoscopy and EGD, they state about 3 months ago or less at [facility] .
[2024-08-13] MEDS: IRON SUCROSE COMPLEX 400 MG, IRON SUCROSE COMPLEX 100 MG in SODIUM CHLORIDE 0.9% IV 250 ML 78.57 MG IVPB (18:09)
[2024-08-14 06:00] VITALS: BP 165/74; PULSE 96; RESP 18; TEMP 36.6; O2SAT 98
[2024-08-14] MEDS: LEVOTHYROXINE SODIUM 25 MCG TABLET PO (06:11)
[2024-08-14 06:33] LABS: Hematocrit 30.3 % (42.0-52.0); Hemoglobin 9.6 g/dL (14.0-18.0); Mean Corpuscular HGB Conc 31.7 g/dl (32-36); Mean Corpuscular Hemoglobin 25.2 pg (26-34); Mean Corpuscular Volume 79.5 fl (80-100); Mean Platelet Volume 8.9 fl (7.4-10.4); Platelet Count Result 167 k/mm3 (150-375); Red Blood Count 3.81 M/mm3 (4.6-6.20); Red Cell Distribution Width 16.5 % (11.5-14.5); White Blood Count 5.9 K/mm3 (4.5-10.0)
[2024-08-14 06:47] LABS: Alanine Aminotransferase 10 U/L (6-50); Albumin Level 3.1 g/dL (3.5-5.1); Alkaline Phosphatase 66 U/L (38-126); Anion Gap 6 mmol/L (4-12); Aspartate Amino Transferase 16 U/L (17-59); Bilirubin,Total 0.9 mg/dL (0.2-1.3); Blood Urea Nitrogen 6 mg/dL (9-20); Calcium 7.4 mg/dL (8.4-10.2); Carbon Dioxide 26 mmol/L (22-30); Chloride 106 mmol/L (98-107); Estimated CRCL calculation 62 ml/min; Estimated Glomerular Filt Rate > 60; Glucose 101 mg/dL (65-110); Magnesium 1.6 mg/dL (1.6-2.3); Potassium 2.9 mmol/L (3.4-5.0); Sodium 138 mmol/L (137-145)
[2024-08-14] MEDS: PANTOPRAZOLE 40 MG TABLET PO (08:57)
[2024-08-14] MEDS: amLODIPine BESYLATE 10 MG TABLET PO (08:57)
[2024-08-14] MEDS: allopurinoL 300 MG TABLET PO (08:57)
[2024-08-14] MEDS: VALSARTAN 40 MG TABLET PO (08:57)
[2024-08-14] MEDS: CYANOCOBALAMIN 1,000 MCG TABLET 1000 MCG PO (08:57)
[2024-08-14] MEDS: ATORVASTATIN 20 MG TABLET PO (08:57)
[2024-08-14] MEDS: CALCIUM CARBONATE (OSCAL) 500 MG TABLET PO ×3 (08:57→16:27)
[2024-08-14] MEDS: CHOLECALCIFEROL 1,000 UNITS TABLET 2000 UNITS PO (08:57)
--- NOTE | 2024-08-14 09:36 | P.PNIM_ITS ---
Progress Note: A&P Assessment and Plan (1) Protein-calorie malnutrition, mild: Code(s): E44.1 - Mild protein-calorie malnutrition Status: Acute (2) Hypocalcemia: Code(s): E83.51 - Hypocalcemia Status: Acute (3) Hypomagnesemia: Code(s): E83.42 - Hypomagnesemia Status: Acute (4) Acute hypokalemia: Code(s): E87.6 - Hypokalemia Status: Acute (5) ADEEL (acute kidney injury): Code(s): N17.9 - Acute kidney failure, unspecified Status: Acute Plan (1) Hypocalcemia: Code(s): E83.51 - Hypocalcemia Status: Acute Assessment and Plan: * GI losses plus poor intake likely etiology as PTH WNL, Phos WNL * 08/12 Ca 7.0 with albumin 3.1, corrected Ca 7.7, eating well, so d/c IVF, PO CaCO3 started, transfer to medical floor Potassium 7.4 today, provide calcium gluconate 2 g IV once continue calcium carbonate p.o. (2) Hypomagnesemia: Code(s): E83.42 - Hypomagnesemia Status: Acute Assessment and Plan: * As above * 1.6 lower side Provide magnesium sulfate 2 g IV once * (3) Acute hypokalemia: Code(s): E87.6 - Hypokalemia Status: Acute Assessment and Plan: Potassium 2.9, start potassium chloride 40 mg IV push once, start potassium c hloride 40 mEq p.o. b.i.d. Follow-up BMP * * * (4) Diarrhea: Code(s): R19.7 - Diarrhea, unspecified Status: Acute Assessment and Plan: * Seems to have resolved * Viral vs medication reaction * 08/12 COVID 19 swab * 08/12 PT/OT * Stool studies if diarrhea recurs (5) Cognitive impairment: Code(s): R41.89 - Other symptoms and signs involving cognitive functions and awareness Status: Acute Assessment and Plan: * Recently started on carbidopa-levodopa by a neurologist, presumably for parkinsonism * Unlikely cause of diarrhea but holding for now * 08/12 CT brain with pansinusitis (s/p recent sinus surgery) but no acute intracranial process * * * (6) Hypertension: Code(s): I10 - Essential (primary) hypertension Status: Acute Assessment and Plan: * 08/12 153/70 * Continue Valsartan and amlodipine * Monitor * * * (7) Anemia: Code(s): D64.9 - Anemia, unspecified Status: Acute Assessment and Plan: * Known iron deficiency and borderline low B12 level * EGD 12/2022 with NERD and gastritis * Colonoscopy 12/2022 with polyps * No gross bleeding * Home meds do not include iron or B12 supplementation, so check levels and supplement appropriately * * * (8) GERD (gastroesophageal reflux disease): Code(s): K21.9 - Gastro-esophageal reflux disease without esophagitis Status: Acute Assessment and Plan: * Discontinue Protonix because of side effect of electrolyte waste * Start famotidine p.o. * * (9) Hypothyroidism: Code(s): E03.9 - Hypothyroidism, unspecified Status: Acute Assessment and Plan: * Continue levothyroxine * * (10) Gout: Code(s): M10.9 - Gout, unspecified Status: Acute Assessment and Plan: * Continue allopurinal * * (11) Protein-calorie malnutrition, mild: Code(s): E44.1 - Mild protein-calorie malnutrition Status: Acute Assessment and Plan: * Likely a contributing factor to his acute issues Gout Patient has history of gout, swelling and tender of the multiple joint of right hand Suspecting flare up cough Follow urine acid level Continue home medication he allopurinol 300 mg daily p.o. co Mikhail 0.6 mg daily p.o. Subjective Date/time seen: 08/14/24 09:36 Interval history: I saw and examined the patient today in presents of patient's son and patient's nurse. Patient ambulated with physical therapist, patient still has general weakness, denies focal weakness. Patient denies nausea vomiting diarrhea today. Patient complained swelling and pain of the right hand, and shoulder pain. Patient has history of gout Exam Narrative: GENERAL: Pleasant, in no acute distress. Well-nourished. - EYES: EOMI. Anicteric. - HENT: Moist mucous membranes. - LUNGS: Clear to auscultation bilateral ly, no wheezing, rhonchi, or rales. - CARDIOVASCULAR: Regular rate and rhyth m. No murmur. No JVD. - ABDOMEN: Soft, non-tender and non-dist ended. No palpable masses. - EXTREMITIES: No edema. Peripheral puls es 2+. Swelling of the multiple joints of the right hand - NEUROLOGIC: No focal neurological defi cits. CN II-XII grossly intact. - PSYCHIATRIC: Awake, Alert and oriented x 3. Appropriate mood and affect. - SKIN: No rashes or lesions. Warm. - LYMPH: No cervical lymphadenopathy. Objective Data Vital Signs Vital Signs: Vital Signs - 24 hr 08/13/24 10:00 08/13/24 12:00 08/13/24 14:00 Temperature 97.9 F Pulse Rate 95 93 82 Respiratory Rate 16 Blood Pressure 169/60 H Pulse Oximetry 97 Oxygen Delivery 08/13/24 20:37 08/13/24 20:00 08/14/24 06:00 Temperature 98.8 F 97.8 F Pulse Rate 96 96 Respiratory Rate 18 18 Blood Pressure 146/96 H 165/74 H Pulse Oximetry 95 98 Oxygen Delivery Room Air Intake/Output Intake/Output: Intake & Output 08/11/24 08/12/24 08/13/24 08/14/24 23:59 23:59 23:59 23:59 Intake Total 150 2160.7 790 Output Total 1000 Balance 150 1160.7 790 Meds/Results Medications: Active Medications Generic Name Dose Route Start Last Admin Trade Name Freq PRN Reason Stop Dose Admin Hydrocodone Bitart/Acetaminophen 1 tab 08/13/24 00:32 Hydrocodone/Acetaminophen (*Crx) 5-325 Mg Tablet PO Q4H PRN pain 4-6 Allopurinol 300 mg 08/13/24 09:00 08/14/24 08:57 Allopurinol 300 Mg Tablet PO 300 mg DAILY KARTHIK Administration Amlodipine Besylate 10 mg 08/13/24 09:00 08/14/24 08:57 Amlodipine Besylate 10 Mg Tablet PO 10 mg DAILY KARTHIK Administration Atorvastatin Calcium 20 mg 08/13/24 09:00 08/14/24 08:57 Atorvastatin 20 Mg Tablet PO 20 mg DAILY KARTHIK Administration Calcium Carbonate 500 mg 08/13/24 12:00 08/14/24 08:57 Calcium Carbonate (Oscal) 500 Mg Tablet PO 500 mg TIDWM KARTHIK Administration Cyanocobalamin 1,000 mcg 08/13/24 09:00 08/14/24 08:57 Cyanocobalamin 1,000 Mcg Tablet PO 1,000 mcg QAM KARTHIK Administration Ferrous Sulfate 325 mg 08/13/24 12:00 08/13/24 12:10 Ferrous Sulfate [address] PO 325 mg DAILY@1200 KARTHIK Administration Levothyroxine Sodium 25 mcg 08/13/24 06:30 08/14/24 06:11 Levothyroxine Sodium 25 Mcg Tablet PO 25 mcg DAILY@0630 KARTHIK Administration Loperamide HCl 2 mg 08/13/24 00:31 Loperamide Hcl 2 Mg Capsule PO PRN PRN Diarrhea Pantoprazole Sodium 40 mg 08/13/24 09:00 08/14/24 08:57 Pantoprazole 40 Mg Tablet PO 40 mg Q12HR KARTHIK Administration Sodium Chloride 1 spray 08/13/24 06:00 08/14/24 04:19 Saline 0.65% Rodrigo Soln 44 Ml Btl NASAL Not Given Q6HR KARTHIK Valsartan 40 mg 08/13/24 09:00 08/14/24 08:57 Valsartan 40 Mg Tablet PO 40 mg DAILY KARTHIK Administration Vitamin D 2,000 units 08/14/24 09:00 08/14/24 08:57 Cholecalciferol 1,000 Units Tablet PO 2,000 units QAM KARTHIK Administration Radiology Results: ITS Impressions Chest X-Ray 08/12/24 19:06 IMPRESSION: Cardiomegaly No active pulmonary disease Head CT 08/12/24 21:23 IMPRESSION: No acute intracranial finding Pansinusitis Labs Labs: Laboratory Results - last 24 hr 08/13/24 08/13/24 08/13/24 00:55 04:29 07:27 WBC RBC Hgb Hct MCV MCH MCHC RDW Plt Count MPV Absolute Retic 0.04 Percent Retic 1.19 Immature Retic Fraction 15.5 Retic Hgb Content 31.0 Sodium Potassium Chloride Carbon Dioxide Anion Gap BUN Creatinine Estim Creat Clear Calc Estimated GFR Glucose Calcium Magnesium Iron 15 L TIBC 233 L % Saturation 6 L Total Bilirubin AST ALT Alkaline Phosphatase Total Protein Albumin Vitamin B12 606.0 Vitamin D 25-Hydroxy < 12.8 Folate 7.5 TSH (Reflex) 0.962 SARS-CoV-2 RNA (RT-PCR) 08/13/24 08/14/24 09:55 06:28 WBC 5.9 RBC 3.81 L Hgb 9.6 L Hct 30.3 L MCV 79.5 L MCH 25.2 L MCHC 31.7 L RDW 16.5 H Plt Count 167 MPV 8.9 Absolute Retic Percent Retic Immature Retic Fraction Retic Hgb Content Sodium 138 Potassium 2.9 L Chloride 106 Carbon Dioxide 26 Anion Gap 6 BUN 6 L Creatinine 0.70 Estim Creat Clear Calc 62 Estimated GFR > 60 Glucose 101 Calcium 7.4 L Magnesium 1.6 Iron TIBC % Saturation Total Bilirubin 0.9 AST 16 L ALT 10 Alkaline Phosphatase 66 Total Protein 6.0 L Albumin 3.1 L Vitamin B12 Vitamin D 25-Hydroxy Folate TSH (Reflex) SARS-CoV-2 RNA (RT-PCR) Negative
[2024-08-14] MEDS: CALCIUM GLUC 1,000 MG/NS 50 ML 1,000 MG/50 ML BAG 100 MG IVPB (11:19)
[2024-08-14] MEDS: POTASSIUM CHLORIDE INJ 40 MEQ in SODIUM CHLORIDE 0.9% IV 500 ML 130 MEQ IVPB (11:19)
[2024-08-14] MEDS: MAGNESIUM SULF 1 GM/D5W 100 ML 1 GM/100 ML BAG IVPB (11:58)
[2024-08-14] MEDS: FERROUS SULFATE 325 MG TABLET DR PO (12:15)
[2024-08-14] MEDS: SALINE 0.65% NAS SOLN 44 ML BTL 1 SPRAY NASAL ×2 (12:15→16:50)
[2024-08-14] MEDS: COLCHICINE 0.6 MG TABLET PO (12:15)
[2024-08-14 12:21] LABS: Uric Acid 2.1 mg/dL (3.5-8.5)
[2024-08-14] MEDS: ACETAMINOPHEN 325 MG TABLET 650 MG PO ×2 (13:46→20:25)
[2024-08-14 13:55] VITALS: BP 132/65; PULSE 91; RESP 18; TEMP 36.5; O2SAT 96
[2024-08-14] MEDS: POTASSIUM CHLORIDE 20 MEQ PACKET (FOR LIQUID) 40 MEQ PO (16:27)
[2024-08-14] MEDS: HYDROcodone/acetaminophen (*CRX) 5-325 MG TABLET 1 TAB PO (16:28)
[2024-08-14] MEDS: FAMOTIDINE 20 MG TABLET PO (20:25)
[2024-08-14 20:43] VITALS: BP 148/61; PULSE 73; RESP 16; TEMP 36.8; O2SAT 97
[2024-08-15] MEDS: SALINE 0.65% NAS SOLN 44 ML BTL 1 SPRAY NASAL ×3 (00:39→12:53)
[2024-08-15 05:05] VITALS: BP 168/70; PULSE 73; RESP 16; TEMP 36.5; O2SAT 98
[2024-08-15] MEDS: LEVOTHYROXINE SODIUM 25 MCG TABLET PO (05:22)
[2024-08-15] MEDS: ACETAMINOPHEN 325 MG TABLET 650 MG PO (05:22)
[2024-08-15 07:55] LABS: Hematocrit 28.4 % (42.0-52.0); Hemoglobin 9.1 g/dL (14.0-18.0); Mean Corpuscular Hemoglobin 25.7 pg (26-34); Mean Corpuscular Volume 80.2 fl (80-100); Mean Platelet Volume 9.2 fl (7.4-10.4); Platelet Count Result 178 k/mm3 (150-375); Red Blood Count 3.54 M/mm3 (4.6-6.20); Red Cell Distribution Width 16.3 % (11.5-14.5); White Blood Count 3.2 K/mm3 (4.5-10.0)
[2024-08-15 08:09] LABS: Alanine Aminotransferase 10 U/L (6-50); Alkaline Phosphatase 62 U/L (38-126); Anion Gap 6 mmol/L (4-12); Aspartate Amino Transferase 16 U/L (17-59); Bilirubin,Total 0.5 mg/dL (0.2-1.3); Blood Urea Nitrogen 6 mg/dL (9-20); Calcium 8.4 mg/dL (8.4-10.2); Carbon Dioxide 28 mmol/L (22-30); Chloride 108 mmol/L (98-107); Estimated CRCL calculation 64 ml/min; Estimated Glomerular Filt Rate > 60; Glucose 81 mg/dL (65-110); Magnesium 1.7 mg/dL (1.6-2.3); Potassium 3.4 mmol/L (3.4-5.0); Sodium 142 mmol/L (137-145)
[2024-08-15] MEDS: CALCIUM CARBONATE (OSCAL) 500 MG TABLET PO ×2 (09:37→12:53)
[2024-08-15] MEDS: POTASSIUM CHLORIDE 20 MEQ PACKET (FOR LIQUID) 40 MEQ PO (09:37)
[2024-08-15] MEDS: COLCHICINE 0.6 MG TABLET PO (09:37)
[2024-08-15] MEDS: FAMOTIDINE 20 MG TABLET PO (09:37)
[2024-08-15] MEDS: allopurinoL 300 MG TABLET PO (09:37)
[2024-08-15] MEDS: CHOLECALCIFEROL 1,000 UNITS TABLET 2000 UNITS PO (09:38)
[2024-08-15] MEDS: amLODIPine BESYLATE 10 MG TABLET PO (09:38)
[2024-08-15] MEDS: ATORVASTATIN 20 MG TABLET PO (09:38)
[2024-08-15] MEDS: CYANOCOBALAMIN 1,000 MCG TABLET 1000 MCG PO (09:38)
[2024-08-15] MEDS: VALSARTAN 40 MG TABLET PO (09:39)
[2024-08-15 10:14] LABS: Iron 75 ug/dL (49-181)
[2024-08-15 10:23] LABS: Percent Iron Saturation 34 % (20-50)
[2024-08-15 10:47] LABS: Ionized Calcium 3.8 mg/dL (4.7-5.5)
--- NOTE | 2024-08-15 12:20 | P.DS_ITS ---
DS: Admitting Diagnosis Discharge Date 08/15/24 Admitting Diagnosis Diarrhea and weakness DS: Discharge Diagnosis Discharge Diagnosis (1) Diarrhea: Code(s): R19.7 - Diarrhea, unspecified Status: Acute (2) Hypomagnesemia: Code(s): E83.42 - Hypomagnesemia Status: Acute (3) Acute hypokalemia: Code(s): E87.6 - Hypokalemia Status: Acute (4) Hypovitaminosis D: Code(s): E55.9 - Vitamin D deficiency, unspecified Status: Acute DS: Summary Hospital Course Hospital Course: 88-year-old male accompanied by his son-in-law and daughter. The patient has had progressive memory issues to which the family thinks he has dementia. As such, the patient cannot provide accurate history. Aside from his progressive cognitive decline the patient has been in his usual physical state prior to 2 days ago. He did have a bilateral frontal sinus sinusotomy and other associated procedures on 08/07/[address] Seng JEFFRIES. He has history of hypertension, GERD, hypothyroidism, likely dementia as mentioned above. He has also seen a neurologist recently and was started on carbidopa levodopa. Carbidopa levodopa dose was just increased on Wednesday which is 4 days prior to admission. The patient is brought in because of diarrhea and increased confusion. For 2 days prior to admission he has had difficulty ambulating and stumbling around. He has had looked diarrhea for 2 days they cannot further qualify or quantify it. The patient cannot provide much history either. In fact, he reports he did not have diarrhea. Denies abdominal pain. Denies blood per rectum. Denies fever. Denies nausea or vomiting. He reports being his usual self. Family reports the patient has not been eating as much as usual. Patient did not have any diarrhea while in the ER a laboratory workup revealed a hemoglobin of 9.4, potassium 3.0, glucose 111, calcium 5.5, CT albumin 3.4, magnesium 0.4. Chest x-ray and head CT did not demonstrate any cardiopulmonary disease or acute intracranial finding. Pansinusitis is identified. Patient given calcium gluconate to g, magnesium 4 g, potassium 20 mEq rider. Patient does not have classic signs of hypocalcemia. EKG demonstrates sinus rhythm occasional PVC. QRS 92. QTC 44. today, diarrhea has resolved and appetite is now at baseline and eating every well. mag, Potassium and Calcium were replaced and markedly improved. Patient also has hypovitaminosis D with vit D level of <12. Patient discharged on 2000 units of Vit D, 3 days of Calcium gluconate, potassium chloride and magnesium oxide. also had a gout flare that improved with one dose of Colchicine, discharge on 2 days of Colchicine. Continue home Allpurinol Son was at bedside and they both agreed with discharge. discussed f/u with PCP in 3-5 days (1) Hypocalcemia: Code(s): E83.51 - Hypocalcemia Status: Acute Assessment and Plan: * GI losses plus poor intake likely etiology as PTH WNL, Phos WNL * resolved. discharged on 3 more days of Calcium gluconate (2) Hypomagnesemia: Code(s): E83.42 - Hypomagnesemia Status: Acute Assessment and Plan: * As above * 1.6 lower side Provide magnesium sulfate 2 g IV once resolved. discharged on 3 more days of Mag oxide * (3) Acute hypokalemia: Code(s): E87.6 - Hypokalemia Status: Acute Assessment and Plan: s/p IV KCl discharged on 3 more days of Potassium Chrolide continue follow up with PCP R19.7 - Diarrhea, unspecified, resovled and appetite returned to baselien Status: Acute Assessment and Plan: * Seems to have resolved * Viral vs medication reaction * 08/12 COVID 19 swab * 08/12 PT/OT * resolved * (5) Cognitive impairment: Code(s): R41.89 - Other symptoms and signs involving cognitive functions and awareness Status: Acute Assessment and Plan: * Recently started on carbidopa-levodopa by a neurologist, presumably for parkinsonism * Unlikely cause of diarrhea but holding for now * 08/12 CT brain with pansinusitis (s/p recent sinus surgery) but no acute intracranial process * * * (6) Hypertension: Code(s): I10 - Essential (primary) hypertension Status: Acute Assessment and Plan: * 08/12 153/70 * Continue Valsartan and amlodipine * Monitor * * * (7) Anemia: Code(s): D64.9 - Anemia, unspecified Status: Acute Assessment and Plan: * Known iron deficiency and borderline low B12 level * EGD 12/2022 with NERD and gastritis * Colonoscopy 12/2022 with polyps * No gross bleeding * Home meds do not include iron or B12 supplementation, so check levels and supplement appropriately * * * (8) GERD (gastroesophageal reflux disease): Code(s): K21.9 - Gastro-esophageal reflux disease without esophagitis Status: Acute Assessment and Plan: * Discontinue Protonix because of side effect of electrolyte waste * Start famotidine p.o. * * (9) Hypothyroidism: Code(s): E03.9 - Hypothyroidism, unspecified Status: Acute Assessment and Plan: * Continue levothyroxine * * (10) Gout: Code(s): M10.9 - Gout, unspecified Status: Acute Assessment and Plan: * Continue allopurinol * * (11) Protein-calorie malnutrition, mild: Code(s): E44.1 - Mild protein-calorie malnutrition Status: Acute Assessment and Plan: * Likely a contributing factor to his acute issues Gout Patient has history of gout, swelling and tender of the multiple joint of right hand Suspecting flare up markedly improved with colchicine one dose discharged on 2 more days of Colchicine contienu Allpurinol Hypovitaminosis D Vit D <12 discharged on 1999units daily of Vitamin D F/u with PCP Time Spent with Patient Time attestation: Total time spent providing and/or coordinating discharge services: DS: Data Data Completed and Pending Labs on day of discharge: Labs from last 24 hours 08/15/24 08/15/24 08/14/24 09:23 07:36 06:28 WBC 3.2 L RBC 3.54 L Hgb 9.1 L Hct 28.4 L MCV 80.2 MCH 25.7 L MCHC 32.0 RDW 16.3 H Plt Count 178 MPV 9.2 Sodium 142 Potassium 3.4 Chloride 108 H Carbon Dioxide 28 Anion Gap 6 BUN 6 L Creatinine 0.60 L Estim Creat Clear Calc 64 Estimated GFR > 60 Glucose 81 Uric Acid 2.1 L Calcium 8.4 Ionized Calcium Laina Magnesium 1.7 Iron 75 TIBC 221 L % Saturation 34 Ferritin 584.00 H Total Bilirubin 0.5 AST 16 L ALT 10 Alkaline Phosphatase 62 Total Protein 6.0 L Albumin 3.0 L 08/13/24 00:55 WBC RBC Hgb Hct MCV MCH MCHC RDW Plt Count MPV Sodium Potassium Chloride Carbon Dioxide Anion Gap BUN Creatinine Estim Creat Clear Calc Estimated GFR Glucose Uric Acid Calcium Ionized Calcium Laina 3.8 L Magnesium Iron TIBC % Saturation Ferritin Total Bilirubin AST ALT Alkaline Phosphatase Total Protein Albumin Discharge Plan Discharge Attending physician on discharge: Giovany Jones Discharging Clinician: Giovany Jones Anticipated Discharge Date/Time: 08/15/24 12:15 Patient Disposition: Home, Self-Care Activity: as tolerated Diet: as tolerated Patient Instructions: Antibiotic Form, Hypokalemia (GEN), Hypocalcemia (GEN) Stand Alone Forms: General Discharge Information Follow-up/Referrals: Amador,Arthur Calix MD [Primary Care Provider] - (F/u with PCP in 3-5 days ) Discharge Medications: New cholecalciferol (vitamin D3) [Vitamin D3] 25 mcg (1,000 unit) Tablet 2,000 unit PO QAM 30 Days Qty: 30 2RF magnesium oxide 500 mg capsule 500 mg PO BID Qty: 6 0RF calcium carbonate [Oyster Shell Calcium 500] 500 mg calcium (1,250 mg) Tablet 500 mg PO TIDWM 3 Days Qty: 9 0RF colchicine [Colcrys] 0.6 mg Tablet 0.6 mg PO QAM 2 Days Qty: 2 0RF potassium chloride 20 mEq tablet extended release 20 meq PO DAILY Qty: 7 0RF Continued allopurinol 300 mg tablet 300 mg PO DAILY omeprazole 40 mg capsule,delayed release(DR/EC) 40 mg PO DAILY carbidopa-levodopa 25-100 mg tablet 0.5 tablet PO TID Rx Instructions: Increase dose on 08/16/24 to 2 tablets TID hydrocodone-acetaminophen 5-325 mg tablet 1 tablet PO Q4H PRN (Reason: pain) Qty: 20 0RF levothyroxine 25 mcg tablet 25 mcg PO DAILY cyanocobalamin (vitamin B-12) [Vitamin B-12] 1,000 mcg Tablet 1,000 mcg PO QAM Qty: 30 1RF amlodipine 10 mg Tablet 10 mg PO DAILY Qty: 30 1RF valsartan 40 mg tablet 40 mg PO DAILY Qty: 30 0RF atorvastatin 20 mg tablet 20 mg PO DAILY Qty: 30 1RF ferrous sulfate 325 mg (65 mg iron) tablet 325 mg PO DAILY Qty: 30 0RF Afrin Saline Nasal Mist 0.65 % Mist 1 spray INTRANASAL Q6H Rx Instructions: q4-5 hr colchicine 0.6 mg tablet 0.6 mg PO PRN Date of admission: 08/12/24 22:07 Primary Care Provider: Amador,Arthur Calix Admitting Provider: Yessi Smith Attending physician on admission: Yessi Smith Condition: Stable
[2024-08-15] MEDS: MAGNESIUM SULF 2 GM/WATER 50ML 2 GM/50 ML BAG IVPB (12:53)
[2024-08-15] MEDS: FERROUS SULFATE 325 MG TABLET DR PO (12:54)
[2024-08-15 14:00] VITALS: BP 156/59; PULSE 74; RESP 14; TEMP 36.3; O2SAT 99
== END 2024-08-15 15:20 | disposition home or self-care (01) | DRG 641 ==
LOC: ANHED 19:30 → ANHIMU 22:26 → ANH3MEDSUR 08-13 13:31
PROVIDERS: Emergency Medicine; Hospitalist; Internal Medicine; Admitting Provider General Practice; Emergency Provider Student in an Organized Health Care Education/Training Program; PCP Internal Medicine; Visit Provider Internal Medicine
DX: E87.6 Hypokalemia (principal); E44.1 Mild protein-calorie malnutrition; E83.51 Hypocalcemia; E83.42 Hypomagnesemia; R19.7 Diarrhea, unspecified; I10 Essential (primary) hypertension; K21.9 Gastro-esophageal reflux disease without esophagitis; E03.9 Hypothyroidism, unspecified; D50.9 Iron deficiency anemia, unspecified; J32.4 Chronic pansinusitis; R41.89 Other symptoms and signs involving cognitive functions and awareness; Z20.822 Contact with and (suspected) exposure to COVID-19; Z85.46 Personal history of malignant neoplasm of prostate
CPT/HCPCS: 36415; 70450; 71046; 80048; 80053; 82306; 82330; 82607; 82728; 82746; 83540; 83550; 83735; 83970; 84100; 84443; 84550; 85025; 85027; 85046; 87635; 93005; 96365; 97161; 97165; 99285; A9270; J0612; J0613; J1756; J3475; J3480; J7030; J7040; J7050; J7120